=== PATIENT | female | born 1945 | race Caucasian/White ===

== ENCOUNTER 2018-12-01 13:31 | Outpatient (CLI) | payer MEDICARE | END 2018-12-01 13:32 | disposition critical access hospital (66) | LOC: EMS 13:31 | PROVIDERS: ATTEND Surgery | DX: R07.9 Chest pain, unspecified (principal); R06.02 Shortness of breath; R11.0 Nausea | CPT/HCPCS: A0425; A0427 ==

== ENCOUNTER 2018-12-01 13:40 | Emergency (ER) | payer MEDICARE, OTHER ==
[2018-12-01] MEDS ORDERED: LORazepam 2 MG/ML VIAL IVP STA (14:19)
[2018-12-01 14:33] LABS: BASOPHILS # (AUTO) 0.1 10^3/uL (0.0-0.1); BASOPHILS % (AUTO) 0.7 %; EOSINOPHILS # (AUTO) 0.1 10^3/uL (0.0-0.7); EOSINOPHILS % (AUTO) 1.6 %; HGB - HEMOGLOBIN 14.2 g/dL (12.0-16.0); LYMPHOCYTES # (AUTO) 1.8 10^3/uL (1.5-3.5); LYMPHOCYTES % (AUTO) 23.9 %; MEAN CORPUSCULAR HEMOGLOBIN 30.3 pg (27.0-31.0); MEAN CORPUSCULAR HGB CONC 33.5 g/dL (32.0-36.0); MEAN CORPUSCULAR VOLUME 90.6 fL (81.0-99.0); MEAN PLATELET VOLUME 11.4 fL (7.9-10.8); MONOCYTES # (AUTO) 0.6 10^3/uL (0.0-1.0); MONOCYTES % (AUTO) 7.6 %; NEUTROPHILS % (AUTO) 65.8 %; PLT - PLATELET COUNT 217 10^3/uL (130-450); RED BLOOD COUNT 4.68 10^6/uL (4.20-5.40); RED CELL DISTRIBUTION WIDTH 12.8 % (12.0-15.0); WHITE BLOOD COUNT 7.5 x10^3/uL (4.8-10.8)
[2018-12-01] MEDS ORDERED: FAMOTIDINE 20 MG TABLET PO STA (14:42)
[2018-12-01] MEDS ORDERED: LIDOCAINE VISCOUS 2% 15 ML UDC MM STA (14:42)
[2018-12-01] MEDS ORDERED: MAG HYDROX/AL HYDROX/SIMETH 30 ML UDC PO STA (14:42)
[2018-12-01] MEDS ORDERED: SUCRALFATE 1 GM/10 ML UDC PO STA (14:42)
--- NOTE | 2018-12-01 14:51 | ED Physician Documentation ---
PD HPI CHEST PAIN - Stated complaint Stated Complaint: CP - Chief complaint Chief Complaint: Cardiac - History obtained from History obtained from: Patient, Family, EMS - History of Present Illness Timing - onset: How many hours ago (4) Timing - onset during: Rest Timing - duration: Hours (4) Timing - details: Gradual onset Pain level max: 5 Pain level now: 5 Quality: Pain Location: Epigastric Radiation: Other (chest) Improved by: Nothing Worsened by: Other (nothing) Associated symptoms: Shortness of air. No: General Weakness, Cough Similar symptoms before: Diagnosis (GERD) Recently seen: Not recently seen - Additional information Additional information: history of anxiety and dementia. Lives with . gives most of the history. Pain started after breakfast. She had tea and orange juice. 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 : None HEENT: None Psych: Anxiety Musculoskeletal: None Derm: None - Past Surgical History 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 - Present Medications Home Medications: Ambulatory Orders Medication Instructions Recorded Confirmed Galantamine [Razadyne] 4 mg PO DAILY 11/19/13 12/01/18 HYDROcod/ACETAM 5/325 [Vicodin 1 - 2 ea PO Q6H PRN #15 tablet 11/19/13 12/01/18 5/325] Methocarbamol [Robaxin-750] 750 mg PO Q6HR PRN #20 tablet 11/19/13 12/01/18 Famotidine [Pepcid] 20 mg PO BID #60 tablet 12/01/18 - Allergies Allergies/Adverse Reactions: Allergies Allergy/AdvReac Type Severity Reaction Status Date / Time No Known Drug Allergies Allergy Verified 12/01/18 13:52 - Social History Does the pt smoke?: No Smoking Status: Never smoker Does the pt drink ETOH?: No Does the pt have substance abuse?: No - Immunizations Immunizations are current?: Yes - POLST Patient has POLST: No PD ED PE NORMAL - Vitals Vital signs reviewed: Yes - General General: Well developed/nourished, Other (Appears very anxious.) - HEENT HEENT: Moist mucous membranes - Neck Neck: Supple, no meningeal sign - Cardiac Cardiac: RRR - Respiratory Respiratory: No respiratory distress, Clear bilaterally - Abdomen Abdomen: Soft, Non tender, Non distended - Derm Derm: Warm and dry - Extremities Extremities: No edema - Neuro Neuro: Other (Alert, anxious) - Psych Psych: Normal mood, Normal affect Results - Vitals Vitals: Vital Signs - 24 hr 12/01/18 12/01/18 12/01/18 13:48 14:05 15:05 Temperature 37.0 C Heart Rate 72 87 Respiratory 30 H 14 Rate Blood Pressure 117/83 H 143/96 H Blood Pressure 128/66 [Left] O2 Saturation 100 98 12/01/18 15:50 Temperature Heart Rate 89 Respiratory 19 Rate Blood Pressure 109/75 Blood Pressure [Left] O2 Saturation 97 Oxygen O2 Source Room air Oxygen Flow Rate 2 - EKG (time done) 1522 Rate: Rate (enter#) (69) Rhythm: NSR [place]: Normal Intervals: Normal RI QRS: Normal Ischemia: Non specific changes - Labs Labs: Laboratory Tests 12/01/18 12/01/18 12/01/18 14:20 14:20 14:20 WBC 7.5 RBC 4.68 Hgb 14.2 Hct 42.4 MCV 90.6 MCH 30.3 MCHC 33.5 RDW 12.8 Plt Count 217 MPV 11.4 H Neut # (Auto) 5.0 Lymph # (Auto) 1.8 [place] # (Auto) 0.6 Eos # (Auto) 0.1 Baso # (Auto) 0.1 Absolute Nucleated RBC 0.00 Nucleated RBC % 0.0 Sodium 140 Potassium 3.1 L Chloride 105 Carbon Dioxide 22 Anion Gap 13.0 BUN 18 Creatinine 0.9 Estimated GFR (MDRD) 61 L Glucose 92 Calcium 9.4 Total Bilirubin 0.7 AST 20 ALT 14 Alkaline Phosphatase 63 Troponin I High Sens 5.0 Total Protein 6.6 L Albumin 4.0 Globulin 2.6 Albumin/Globulin Ratio 1.5 Lipase 29 - Rads (name of study) Chest x-ray Radiology: Prelim report reviewed, EMP read contemporaneously, See rad report (Hazy bibasilar pulmonary opacities could reflect mild pneumonia. ) PD MEDICAL DECISION MAKING - ED course Complexity details: reviewed results, re-evaluated patient, considered differential (No ST elevation IA, no aortic dissection, no PE, no tension pneumothorax, no aortic aneurysm), d/w patient, d/w family ED course: 73-year-old female with what appears to be GERD. Symptoms resolved with GI cocktail. Anxiety resolved with Ativan. Negative high-sensitivity troponin. No acute findings on EKG or chest x-ray. Exam is not consistent with pneumonia. History is also not consistent with this. We will continue supportive care and follow-up with her doctor. Will place on an H2 lisa for home. Patient and family counseled regarding signs and symptoms for which I believe and urgent re-evaluation would be necessary. Patient with good understanding of and agreement to plan and is comfortable going home at this time This document was made in part using voice recognition software. While efforts are made to proofread this document, sound alike and grammatical errors may occur. Departure - Departure Disposition: 01 Home, Self Care Clinical Impression: Anxiety GERD (gastroesophageal reflux disease) Qualifiers: Esophagitis presence: with esophagitis Qualified Code(s): K21.0 - Gastro- esophageal reflux disease with esophagitis Condition: Good Instructions: ED Chest Pain Atypical Unkn Cause, ED GERD, ED Panic Attack Follow-Up: your,doctor in 1 week [Other] Prescriptions: Famotidine [Pepcid] 20 mg PO BID #60 tablet Comments: Follow-up with your doctor for further care. Return if you worsen. Take the medications as prescribed. Discharge Date/Time: 12/01/18 15:50
[2018-12-01 14:54] LABS: ALBUMIN/GLOBULIN RATIO 1.5 (1.0-2.2); BILIRUBIN,TOTAL 0.7 mg/dL (0.2-1.0); CALCIUM 9.4 mg/dL (8.5-10.3); CREATININE 0.9 mg/dL (0.4-1.0); TOTAL PROTEIN 6.6 g/dL (6.7-8.2)
--- NOTE | 2018-12-01 15:07 | XRAY Report ---
Reason: chest pain Procedure Date: 12/01/2018 Accession Number: [id number] / [id number] Procedure: XR - Chest 1 View X-Ray CPT Code: 83279 FULL RESULT: EXAM: CHEST RADIOGRAPHY EXAM DATE: 12/01/2018 02:37 PM. CLINICAL HISTORY: Chest pain. COMPARISON: 1V CXR 05/16/2007 1:31 PM. TECHNIQUE: 1 view. FINDINGS: Lungs/Pleura: Hazy bibasilar pulmonary opacities could reflect mild pneumonia. No focal upper lung consolidation. No pleural effusion or pneumothorax. Mediastinum: Within exam limitations, the cardiomediastinal contour is normal. Other: None. IMPRESSION: 1. Hazy bibasilar pulmonary opacities could reflect mild pneumonia. RADIA
[2018-12-01 15:51] VITALS: BP 109/75
== END 2018-12-01 15:50 | disposition home or self-care (01) ==
LOC: EDUNIT# → ED 13:40
DX: K21.0 Gastro-esophageal reflux disease with esophagitis (principal); F41.9 Anxiety disorder, unspecified
CPT/HCPCS: 36415; 71045; 80053; 83690; 84484; 85025; 93005; 96374; 99284; A9270; J2060

== ENCOUNTER 2019-02-24 20:47 | Emergency (ER) | payer MEDICARE ==
--- NOTE | 2019-02-24 21:15 | ED Physician Documentation ---
PD HPI ABD PAIN - Stated complaint Stated Complaint: FEM - Chief complaint Chief Complaint: Abd Pain - History obtained from History obtained from: Family (About a week ago developed diarrhea which defervesced with the use of Imodium, but now has not had a bowel movement in 4 days. And appears uncomfortable. 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 - Present Medications Home Medications: Ambulatory Orders Medication Instructions Recorded Confirmed Galantamine [Razadyne] 4 mg PO DAILY 11/19/13 12/01/18 HYDROcod/ACETAM 5/325 [Vicodin 1 - 2 ea PO Q6H PRN #15 tablet 11/19/13 12/01/18 5/325] Methocarbamol [Robaxin-750] 750 mg PO Q6HR PRN #20 tablet 11/19/13 12/01/18 Famotidine [Pepcid] 20 mg PO BID #60 tablet 12/01/18 - Allergies Allergies/Adverse Reactions: Allergies Allergy/AdvReac Type Severity Reaction Status Date / Time No Known Drug Allergies Allergy Verified 02/24/19 20:53 - Social History Does the pt smoke?: No Smoking Status: Never smoker Does the pt drink ETOH?: No Does the pt have substance abuse?: No - Immunizations Immunizations are current?: Yes - POLST Patient has POLST: No PD ED PE NORMAL - Vitals Vital signs reviewed: Yes - General General: Other (She is alert, basically nonverbal but cooperative) - Abdomen Abdomen: Non tender, Other (Hyperactive bowel tones and some distention, nontender) - Rectal Rectal: Other (Large brown fecal impaction, and enema was placed during initial exam.) Results - Vitals Vitals: Vital Signs - 24 hr 02/24/19 20:53 Temperature 36.6 C Heart Rate 84 Respiratory 14 Rate Blood Pressure 143/95 H O2 Saturation 100 Oxygen O2 Source Room air PD MEDICAL DECISION MAKING - ED course ED course: This is a fairly demented 74-year-old woman who presents with a fecal impaction. She was given a couple of enemas here and had large BMs with resolution of the fecal impaction on repeat examination. She remained nontender to evaluation. She did get panicky I think because of the rectal pain and was given some Ativan for this. Departure - Departure Disposition: 01 Home, Self Care Clinical Impression: Fecal impaction Condition: Good Record reviewed to determine appropriate education?: Yes Instructions: ED Impaction Fecal Treated Comments: Call your doctor to arrange a follow-up appointment, make the next available appointment. In the interim, return anytime if worse or if new symptoms develop.
[2019-02-24] MEDS ORDERED: BISACODYL 5 MG TABLET PO STA (21:43)
[2019-02-24] MEDS ORDERED: LORazepam 2 MG/ML VIAL IM STA (21:43)
[2019-02-24] MEDS ORDERED: MAGNESIUM CITRATE 296 ML BOTTLE PO STA (22:18)
[2019-02-24 22:57] VITALS: BP 134/77
== END 2019-02-24 23:06 | disposition home or self-care (01) ==
LOC: ED 20:47
DX: K56.41 Fecal impaction (principal); F03.90 Unspecified dementia, unspecified severity, without behavioral disturbance, psychotic disturbance, mood disturbance, and anxiety; F41.0 Panic disorder [episodic paroxysmal anxiety]
CPT/HCPCS: 96372; 99281; 99283; A9270; J2060

== ENCOUNTER 2019-04-07 15:10 | Emergency (ER) | payer MEDICARE ==
--- NOTE | 2019-04-07 16:33 | ED Physician Documentation ---
PD HPI FEMALE - Stated complaint Stated Complaint: FEMALE - Chief complaint Chief Complaint: Abd Pain - History obtained from History obtained from: Patient, Family - History of Present Illness Timing - onset: Today (patient with dementia so not able to give symptoms well. Caregiver and spouse noted her to be agitated over baseline, and she seemed to have abd pain until had quick urination and complained of pain with urinating. Caregiver says the urine had strong odor and was cloudy looking. She has had some diarrhea/loose stools for 1-2 weeks, and wears Depends as is incontinent often.) Timing - details: Abrupt onset, Still present Associated symptoms: Dysuria. No: Fever, Abdominal pain, Genital sore/lesion Similar symptoms before: Diagnosis (UTIs) Recently seen: Not recently seen Review of Systems Constitutional: denies: Fever Nose: denies: Congestion Respiratory: denies: Cough GI: reports: Diarrhea. denies: Vomiting : reports: Dysuria (today) Neurologic: reports: Altered mental status (agitated over baseline). 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 - Present Medications Home Medications: Ambulatory Orders Medication Instructions Recorded Confirmed Galantamine [Razadyne] 4 mg PO DAILY 11/19/13 12/01/18 HYDROcod/ACETAM 5/325 [Vicodin 1 - 2 ea PO Q6H PRN #15 tablet 11/19/13 12/01/18 5/325] Methocarbamol [Robaxin-750] 750 mg PO Q6HR PRN #20 tablet 11/19/13 12/01/18 Famotidine [Pepcid] 20 mg PO BID #60 tablet 12/01/18 Cephalexin Suspension [Keflex] 750 mg PO BID #150 ml 04/07/19 Phenazopyridine HCl [Pyridium] 100 mg PO TID PRN #15 tablet 04/07/19 - Allergies Allergies/Adverse Reactions: Allergies Allergy/AdvReac Type Severity Reaction Status Date / Time No Known Drug Allergies Allergy Verified 04/07/19 15:21 - Social History Does the pt smoke?: No Smoking Status: Never smoker Does the pt drink ETOH?: No Does the pt have substance abuse?: No - Immunizations Immunizations are current?: Yes - POLST Patient has POLST: No PD ED PE NORMAL - Vitals Vital signs reviewed: Yes - General General: No acute distress, Well developed/nourished. No: Alert and oriented X 3 (alert but not really verbal and does not answer questions, c/w dementia. ) - Neck Neck: Supple, no meningeal sign, No adenopathy - Cardiac Cardiac: RRR, No murmur - Respiratory Respiratory: Clear bilaterally - Abdomen Abdomen: Normal bowel sounds, Soft, Non tender, Non distended - Derm Derm: Normal color, Warm and dry - Neuro Neuro: No motor deficit, No sensory deficit. No: Alert and oriented X 3 Eye Opening: Spontaneous Motor: Localizes to Pain Verbal: Confused GCS Score: 13 Results - Vitals Vitals: Vital Signs - 24 hr 04/07/19 04/07/19 04/07/19 15:22 16:33 19:08 Temperature 36.5 C 37.3 C Heart Rate 84 76 Respiratory 20 20 Rate Blood Pressure 134/69 H O2 Saturation 97 Oxygen O2 Source Room air PD MEDICAL DECISION MAKING - ED course Complexity details: considered differential (unable to give urine sample in commode/hat. Agitated with exam and noncooperative, so did not want to push her for mini-cath. Talked with spouse about empirically treating for UTI without UA. ), d/w patient Departure - Departure Disposition: Home, Self Care Clinical Impression: Dysuria, Agitation Condition: Stable Record reviewed to determine appropriate education?: Yes Instructions: ED Dysuria Uncertain Cause Follow-Up: TERESA LEVIN MD [Primary Care Provider] - Prescriptions: Cephalexin Suspension [Keflex] 750 mg PO BID #150 ml Phenazopyridine HCl [Pyridium] 100 mg PO TID PRN #15 tablet PRN Reason: Abdominal Pain Comments: Given her symptoms with the agitation, will presume she has a urinary tract infection. She does not seem to ill (no fever and soft abdomen and no vomiting (. Phenazopyridine 2-3 times a day to help with the urinary symptoms. Cephalexin antibiotic 2 times a day for infection. Recheck if not improving well over the next couple of days. Tylenol if needed for discomfort. Discharge Date/Time: 04/07/19 19:13
[2019-04-07 16:35] VITALS: BP 134/69
[2019-04-07] MEDS ORDERED: PHENAZOPYRIDINE 100 MG TABLET PO STA (16:53)
[2019-04-07] MEDS ORDERED: HYDROcodone/ACETAM 7.5 MG/325 MG 15 ML UDC PO STA (16:53)
[2019-04-07] MEDS ORDERED: cephALEXin 250 MG CAPSULE PO STA (18:38)
== END 2019-04-07 19:13 | disposition home or self-care (01) ==
LOC: ED 15:10
DX: R30.0 Dysuria (principal); R45.1 Restlessness and agitation; F03.90 Unspecified dementia, unspecified severity, without behavioral disturbance, psychotic disturbance, mood disturbance, and anxiety
CPT/HCPCS: 51798; 99283; 99284; A9270

== ENCOUNTER 2020-02-22 12:31 | Outpatient (CLI) | payer MEDICARE | END 2020-02-22 12:32 | disposition critical access hospital (66) | LOC: EMS 12:31 | PROVIDERS: ATTEND Surgery | DX: S01.81XA Laceration without foreign body of other part of head, initial encounter (principal); W08.XXXA Fall from other furniture, initial encounter; Y92.009 Unspecified place in unspecified non-institutional (private) residence as the place of occurrence of the external cause | CPT/HCPCS: A0425; A0429 ==

== ENCOUNTER 2020-02-22 12:45 | Emergency (ER) | payer MEDICARE ==
--- NOTE | 2020-02-22 13:23 | ED Physician Documentation ---
History of Present Illness - Stated complaint Stated Complaint: GLF/HIT HEAD - Chief complaint Chief Complaint: Trauma Hd/Nk - History obtained from History obtained from: Family, EMS - History of Present Illness Timing: Today Pain level max: 0 Pain level now: 0 - Additonal information Additional information: 75 year old female with a fall off the stool today while sitting at the kitchen counter. History is from as she is nonverbal. No LOC. Struck her head on the tile. no vomiting. No seizure activity. No changes to her medications. Nothing makes it better or worse. 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 - Present Medications Home Medications: Ambulatory Orders Medication Instructions Recorded Confirmed Galantamine [Razadyne] 4 mg PO DAILY 11/19/13 12/01/18 HYDROcod/ACETAM 5/325 [Vicodin 1 - 2 ea PO Q6H PRN #15 tablet 11/19/13 12/01/18 5/325] Methocarbamol [Robaxin-750] 750 mg PO Q6HR PRN #20 tablet 11/19/13 12/01/18 Famotidine [Pepcid] 20 mg PO BID #60 tablet 12/01/18 Cephalexin Suspension [Keflex] 750 mg PO BID #150 ml 04/07/19 Phenazopyridine HCl [Pyridium] 100 mg PO TID PRN #15 tablet 04/07/19 - Allergies Allergies/Adverse Reactions: Allergies Allergy/AdvReac Type Severity Reaction Status Date / Time No Known Drug Allergies Allergy Verified 02/22/20 12:54 - Social History Does the pt smoke?: No Smoking Status: Never smoker Does the pt drink ETOH?: No Does the pt have substance abuse?: No - Immunizations Immunizations are current?: Yes - POLST Patient has POLST: No PD ED PE NORMAL - Vitals Vital signs reviewed: Yes - General General: No acute distress, Other (alert, smiling) - HEENT HEENT: PERRL, Other (abrasion L congregation. no hematoma) - Neck Neck: Supple, no meningeal sign, No bony TTP, Other (no step off or deformity.) - Cardiac Cardiac: RRR - Respiratory Respiratory: No respiratory distress, Clear bilaterally - Abdomen Abdomen: Soft, Non tender, Non distended - Back Back: No spinal TTP, Other (no step off or deformity.) - Derm Derm: Warm and dry - Extremities Extremities: No deformity, No tenderness to palpate, Normal ROM s pain - Neuro Neuro: Other (alert) Results - Vitals Vitals: Vital Signs - 24 hr 02/22/20 02/22/20 12:50 14:55 Temperature 36.5 C Heart Rate 66 56 L Respiratory 18 18 Rate Blood Pressure 111/49 L 139/70 H O2 Saturation 100 100 Oxygen O2 Source Room air - Labs Labs: Laboratory Tests 02/22/20 02/22/20 13:32 13:32 WBC 9.6 RBC 4.46 Hgb 12.8 Hct 39.6 MCV 88.8 MCH 28.7 MCHC 32.3 RDW 13.0 Plt Count 254 MPV 10.6 Neut # (Auto) 8.0 H Lymph # (Auto) 0.9 L [place] # (Auto) 0.6 Eos # (Auto) 0.1 Baso # (Auto) 0.1 Absolute Nucleated RBC 0.00 Nucleated RBC % 0.0 Sodium 138 Potassium 4.1 Chloride 101 Carbon Dioxide 26 Anion Gap 11.0 BUN 17 Creatinine 0.7 Estimated GFR (MDRD) 81 L Glucose 96 Calcium 9.2 Total Bilirubin 0.5 AST 14 ALT 14 Alkaline Phosphatase 76 Total Protein 6.1 L Albumin 3.7 Globulin 2.4 Albumin/Globulin Ratio 1.5 Lipase 28 - Rads (name of study) head CT Radiology: Prelim report reviewed, EMP read contemporaneously, See rad report (no acute abnormality.) cervical spine CT Radiology: Prelim report reviewed, EMP read contemporaneously, See rad report PD MEDICAL DECISION MAKING - ED course Complexity details: reviewed results, re-evaluated patient, considered differential, d/w patient, d/w family ED course: 75-year-old female with a fall today. No acute findings on CT scans of the head and neck. There is a nonspecific opacity in the right lung apex, they will follow-up with her doctor further regarding this. They can have a CT of the chest with IV contrast as an outpatient. No indication for emergent CT at this time. Patient appears to be at her normal mental baseline. Patient and family counseled regarding signs and symptoms for which I believe and urgent re- evaluation would be necessary. Patient with good understanding of and agreement to plan and is comfortable going home at this time This document was made in part using voice recognition software. While efforts are made to proofread this document, sound alike and grammatical errors may occur. Urine sample is unable to be obtained and the patient became agitated when a straight cath was attempted. Therefore we will hold off on obtaining urine at this time. No CT evidence of acute traumatic cervical spine injury. Nonspecific opacity in the right lung apex. This could represent atelectasis, consolidation, or potentially a lung mass. Nonemergent outpatient CT of the chest with IV contrast is recommended for further evaluation. Departure - Departure Disposition: 01 Home, Self Care Clinical Impression: Fall Qualifiers: Encounter type: initial encounter Qualified Code(s): W19.XXXA - Unspecified fall, initial encounter Head injury Qualifiers: Encounter type: initial encounter Qualified Code(s): S09.90XA - Unspecified injury of head, initial encounter Condition: Good Instructions: ED Head Injury Closed Follow-Up: TERESA LEVIN MD [Primary Care Provider] - As Needed Comments: Her laboratory work and CT scans do not show any acute abnormalities today. Return if she worsens. Follow-up with her doctor for further care. CT chest: No CT evidence of acute traumatic cervical spine injury. Nonspecific opacity in the right lung apex. This could represent atelectasis, consolidation, or potentially a lung mass. Nonemergent outpatient CT of the chest with IV contrast is recommended for further evaluation. Discharge Date/Time: 02/22/20 15:51
[2020-02-22 13:38] LABS: BASOPHILS # (AUTO) 0.1 10^3/uL (0.0-0.1); BASOPHILS % (AUTO) 0.5 %; EOSINOPHILS # (AUTO) 0.1 10^3/uL (0.0-0.7); EOSINOPHILS % (AUTO) 0.6 %; HGB - HEMOGLOBIN 12.8 g/dL (12.0-16.0); LYMPHOCYTES # (AUTO) 0.9 10^3/uL (1.5-3.5); LYMPHOCYTES % (AUTO) 9.3 %; MEAN CORPUSCULAR HEMOGLOBIN 28.7 pg (27.0-31.0); MEAN CORPUSCULAR HGB CONC 32.3 g/dL (32.0-36.0); MEAN CORPUSCULAR VOLUME 88.8 fL (81.0-99.0); MEAN PLATELET VOLUME 10.6 fL (7.9-10.8); MONOCYTES # (AUTO) 0.6 10^3/uL (0.0-1.0); MONOCYTES % (AUTO) 5.9 %; NEUTROPHILS % (AUTO) 83.2 %; PLT - PLATELET COUNT 254 10^3/uL (130-450); RED BLOOD COUNT 4.46 10^6/uL (4.20-5.40); WHITE BLOOD COUNT 9.6 x10^3/uL (4.8-10.8)
[2020-02-22 14:00] LABS: ALBUMIN 3.7 g/dL (3.2-5.5); ALBUMIN/GLOBULIN RATIO 1.5 (1.0-2.2); BILIRUBIN,TOTAL 0.5 mg/dL (0.2-1.0); CALCIUM 9.2 mg/dL (8.5-10.3); CREATININE 0.7 mg/dL (0.4-1.0); TOTAL PROTEIN 6.1 g/dL (6.7-8.2)
--- NOTE | 2020-02-22 14:06 | CT Report ---
PROCEDURE: HEAD WO INDICATIONS: Trauma, fall, head injury TECHNIQUE: Noncontrast 4.5 mm thick angled axial sections acquired from the foramen magnum to the vertex. For r adiation dose reduction, the following was used: automated exposure control, adjustment of mA and/or kV according to patient size. COMPARISON: None. FINDINGS: Image quality: Excellent. CSF spaces: Basal cisterns are patent. No extra-axial fluid collections. Ventricles are normal in size and shape. Brain: Advanced global cerebral volume loss with moderate to severe chronic vascular ischemic changes . No midline shift. No intracranial masses or hemorrhage. Trevizo-white matter interface is normal. Skull and face: Calvarium and visualized facial bones are intact, without suspicious lesions. Sinuses: Visualized sinuses and mastoids are clear. IMPRESSION: No acute intracranial finding. Advanced global cerebral volume loss and chronic microvas cular ischemic changes. Reviewed by: Jamarcus Barksdale MD on 02/22/2020 2:05 PM PST Approved by: Jamarcus Barksdale MD on 02/22/2020 2:05 PM PST Station ID: [id number]
--- NOTE | 2020-02-22 14:09 | CT Report ---
PROCEDURE: CERVICAL SPINE WO INDICATIONS: fall, neck pain TECHNIQUE: Noncontrast 3 mm thick sections acquired from the skull base to the T4 level. Sagittal and coronal r eformats were then constructed. For radiation dose reduction, the following was used: automated exp osure control, adjustment of mA and/or kV according to patient size. COMPARISON: None. FINDINGS: Image quality: Excellent. Bones: No fractures or dislocations. Multilevel degenerative changes, overall moderate, characterize d by disc height loss, degenerative endplate changes with posterior disc-osteophyte complexes, as wel l as facet and uncovertebral hypertrophy. Visualized superior ribs are intact. Soft tissues: Prevertebral soft tissues are normal in thickness. No paravertebral hematomas. And no nspecific airspace opacity in the right greater than left lung apices, partially visualized. IMPRESSION: No CT evidence of acute traumatic cervical spine injury. Nonspecific opacity in the right lung apex. This could represent atelectasis, consolidation, or poten tially a lung mass. Nonemergent outpatient CT of the chest with IV contrast is recommended for furthe r evaluation. Reviewed by: Jamarcsu Barksdale MD on 02/22/2020 2:08 PM PST Approved by: Jamarcus Barksdale MD on 02/22/2020 2:08 PM PST Station ID: [id number]
[2020-02-22 15:55] VITALS: BP 113/68
== END 2020-02-22 15:51 | disposition home or self-care (01) ==
LOC: EDUNIT# → ED 12:45
DX: S09.90XA Unspecified injury of head, initial encounter (principal); S00.81XA Abrasion of other part of head, initial encounter; W08.XXXA Fall from other furniture, initial encounter; Y92.000 Kitchen of unspecified non-institutional (private) residence as the place of occurrence of the external cause; M47.812 Spondylosis without myelopathy or radiculopathy, cervical region; R91.8 Other nonspecific abnormal finding of lung field; F03.90 Unspecified dementia, unspecified severity, without behavioral disturbance, psychotic disturbance, mood disturbance, and anxiety
CPT/HCPCS: 36415; 51701; 70450; 72125; 80053; 83690; 85025; 99284

== ENCOUNTER 2020-09-12 11:50 | Outpatient (CLI) | payer MEDICARE | END 2020-09-12 11:51 | disposition critical access hospital (66) | LOC: EMS 11:50 | DX: S00.81XA Abrasion of other part of head, initial encounter (principal); S50.819A Abrasion of unspecified forearm, initial encounter; W17.89XA Other fall from one level to another, initial encounter; Y93.89 Activity, other specified; Y92.008 Other place in unspecified non-institutional (private) residence as the place of occurrence of the external cause | CPT/HCPCS: A0425; A0429 ==

== ENCOUNTER 2020-09-12 11:58 | Emergency (ER) | payer MEDICARE ==
--- NOTE | 2020-09-12 12:12 | ED Physician Documentation ---
History of Present Illness - Stated complaint Stated Complaint: GLF - Additonal information Additional information: 75-year-old lady who carries a history of dementia presents to the emergency department and see spine precautions as well as a backboard after ground-level fall this morning. She was exiting the house with her and she fell forward from her deck onto a gravel rock way. She fell from a height of about 1-1/2 to 2 feet. There was no loss of consciousness. The patient has fairly advanced dementia and is typically nonverbal. Most of the history obtained from the as well as EMS. She is not anticoagulated. Typically able to ambulate with a cane or walker. Review of Systems Unable to obtain: Dementia, Other (History obtained from EMS and ) Constitutional: reports: Reviewed and negative Cardiac: reports: Reviewed and negative Respiratory: reports: Reviewed and negative GI: reports: Reviewed and negative : reports: Reviewed and negative Skin: reports: Laceration (s) (Forehead) Musculoskeletal: reports: Reviewed and negative Neurologic: reports: Head injury PD PAST MEDICAL HISTORY - Past Medical History Cardiovascular: Atrial fibrillation Respiratory: Shortness of breath Neuro: Dementia Endocrine/Autoimmune: None GI: None SPOT BILLING CLERK: None : None HEENT: None Psych: Anxiety Musculoskeletal: None Derm: None - Past Surgical History Past Surgical History: Yes /SPOT BILLING CLERK: Hysterectomy - Present Medications Home Medications: Ambulatory Orders Medication Instructions Recorded Confirmed Galantamine [Razadyne] 4 mg PO DAILY 11/19/13 12/01/18 HYDROcod/ACETAM 5/325 [Vicodin 1 - 2 ea PO Q6H PRN #15 tablet 11/19/13 12/01/18 5/325] methocarbamoL [Robaxin-750] 750 mg PO Q6HR PRN #20 tablet 11/19/13 12/01/18 Famotidine [Pepcid] 20 mg PO BID #60 tablet 12/01/18 Cephalexin Suspension [Keflex] 750 mg PO BID #150 ml 04/07/19 Phenazopyridine HCl [Pyridium] 100 mg PO TID PRN #15 tablet 04/07/19 - Allergies Allergies/Adverse Reactions: Allergies Allergy/AdvReac Type Severity Reaction Status Date / Time No Known Drug Allergies Allergy Verified 09/12/20 12:12 - Social History Does the pt smoke?: No Smoking Status: Never smoker Does the pt drink ETOH?: No Does the pt have substance abuse?: No - Immunizations Immunizations are current?: Yes - POLST Patient has POLST: No PD ED PE EXPANDED - General General: Well developed/nourished, In Pain - HEENT HEENT: PERRL, Other (Irregular jagged laceration to the right upper forehead). No: Atraumatic - Neck Neck: Supple w/out meningeal sx, Other (Arrives in a c-collar and C-spine precautions. No midline cervical tenderness appreciated. Pending CT of the neck). No: Bony TTP (No step-off or deformity) - Cardiac Cardiac: Regular Rate, Radial strong equal, Cap refill < 2 sec - Respiratory Respiratory: Clear to ausultation odalis. No: Distress, Labored - Abdomen Abdomen: Normal Bowel sounds. No: Tender to palpation - Back Back: No: Vertebral tenderness (No tenderness elicited of the thoracic or lumbar spine on palpation no step-off no deformity.), Soft tissue tenderness - Extremities Extremities: Normal, Other (No leg shortening. Bilateral hips passive range of motion without any pain elicited.). No: Deformity, Tenderness - Neuro Neuro: Confused (Baseline dementia), CNII-XII intact - GCS Eye Opening: Spontaneous Motor: Localizes to Pain Verbal: Inappropriate (At baseline for dementia) Total: 12 Results - Vitals Vitals: Vital Signs - 24 hr 09/12/20 09/12/20 12:12 13:42 Temperature 36.7 C Heart Rate 60 56 L Respiratory 16 16 Rate Blood Pressure 97/63 121/73 O2 Saturation 95 98 Oxygen O2 Source Room air - Labs Labs: Laboratory Tests 09/12/20 09/12/20 13:01 13:01 WBC 9.6 RBC 4.37 Hgb 12.9 Hct 38.3 MCV 87.6 MCH 29.5 MCHC 33.7 RDW 12.9 Plt Count 253 MPV 10.9 H Neut # (Auto) 7.4 H Lymph # (Auto) 1.5 [place] # (Auto) 0.6 Eos # (Auto) 0.1 Baso # (Auto) 0.0 Absolute Nucleated RBC 0.00 Nucleated RBC % 0.0 Sodium 138 Potassium 3.7 Chloride 106 Carbon Dioxide 22 Anion Gap 10.0 BUN 18 Creatinine 0.8 Estimated GFR (MDRD) 70 L Glucose 115 H Calcium 9.2 - Rads (name of study) maxilofacial CT Radiology: Final report received (Bilateral comminuted and mildly displaced nasal bone fractures. Right maxillary sinus mucous retention cyst versus polypoid mass. Mildly increased in size from January 2020. Consider nonemergent MRI) CT head Radiology: Final report received (No acute intracranial findings) CXR Radiology: Final report received (No acute cardiopulmonary process) CT neck Radiology: Final report received (No CT evidence of acute traumatic cervical sp ine injury.) Procedures - Laceration (location) forehead Length in cm: 4 Wound type: Stellate, Into subcut fat, Clean Neurovascular status: Sensory intact Anesthesia: Lidocaine 1% Wound preparation: Chlorhexadine, Irrigated copiously NS Skin layer closure: Interrupted, Size #-0 - enter number (6), Sutures - enter # (6) Other: Patient tolerated well, No complications, Tetanus booster given PD MEDICAL DECISION MAKING - ED course Complexity details: reviewed results, re-evaluated patient, considered differential, d/w family ED course: 75-year-old female who has an underlying history of dementia and typically uses a wheelchair or walks with a cane presents the emergency department after a ground-level fall in which she fell face forward off her deck onto a rock ground cover. She arrived via EMS in C-spine and backboard precautions. She had a large laceration on her right forehead as well as swelling and ecchymosis of the nose and under both her eyes. There was no lapse in consciousness. CT imaging of the head showed no acute intracranial injury. Maxillofacial CT did reveal a comminuted nasal fractures. Cervical spine imaging and chest x-ray was negative. She had no thoracic or lumbar tenderness. Laceration was closed at the bedside. Routine wound care was discussed with the . She will be referred to OM for follow-up of the nasal fracture. I advised her that she may benefit from saline nasal sprays though this may be difficult given her advancing dementia. Emergent return precautions were discussed for fevers, significant change in baseline mental status or purulent drainage from her wounds or nose. Departure - Departure Disposition: 01 Home, Self Care Clinical Impression: Fall from ground level Nasal bone fracture Qualifiers: Encounter type: initial encounter Fracture type: closed Qualified Code(s): S02.2XXA - Fracture of nasal bones, initial encounter for closed fracture Laceration of forehead without complication Qualifiers: Encounter type: initial encounter Qualified Code(s): S01.81XA - Laceration without foreign body of other part of head, initial encounter Dementia Qualifiers: Dementia type: unspecified type Dementia behavioral disturbance: without behavioral disturbance Qualified Code(s): F03.90 - Unspecified dementia without behavioral disturbance Condition: Stable Record reviewed to determine appropriate education?: Yes Instructions: ED Fx Nasal Conf W X Ray, ED Laceration Scalp Stitch Or Stap Follow-Up: Tani Saavedra DDS [Provider Admit Priv/Credential] - JULY ARAUJO ARNP [Primary Care Provider] - Comments: Medina was seen today after a fall off the deck at home. CT imaging of her brain shows no bruising or bleeding. The CT of her neck also showed no fractures. Her chest x-ray was normal for age. Unfortunately she has sustained fractures of her nose. You may find that over the next 2 to 3 days that she has significant amount of swelling and bruising of her nose and under her eyes. This is normal. I do recommend that you attempt to do saline nasal sprays 2-3 times a day to help keep her septum clear though this may be difficult. Please call Dr. Saavedra the oral surgeon to arrange follow-up of this fracture. If at any point she has fevers, is significantly more lethargic, has uncontrolled vomiting or milky drainage from her nose please return immediately to the ER for a second look. It is okay to take the regular pain medication she typically takes at home Your sutures should be removed in 7 to 10 days. In 24 hours you may remove the dressing wash gently with warm soap and water, apply any antibiotic ointment and a simple bandage. Your tetanus is up-to-date. Please attempt to keep your wound clean and dry. Do not submerge it in dirty dishwater or bath water. Return to the emergency department if you have any concerns of infection such as redness, fevers milky drainage increased pain.
[2020-09-12] MEDS ORDERED: BUFFERED LIDOCAINE 10 ML SYRINGE SUBQ STA (12:17)
--- NOTE | 2020-09-12 12:47 | CT Report ---
PROCEDURE: HEAD WO INDICATIONS: Ground-level fall, trauma, forehead contusion TECHNIQUE: Noncontrast 4.5 mm thick angled axial sections acquired from the foramen magnum to the vertex. For r adiation dose reduction, the following was used: automated exposure control, adjustment of mA and/or kV according to patient size. COMPARISON: 02/22/[address] FINDINGS: Image quality: Excellent. CSF spaces: Basal cisterns are patent. No extra-axial fluid collections. Ventricles are normal in size and shape. Brain: No midline shift. No intracranial masses or hemorrhage. Trevizo-white matter interface is norm al. Skull and face: Calvarium and visualized facial bones are intact, without suspicious lesions. Sinuses: Visualized sinuses and mastoids are clear. IMPRESSION: No acute intracranial abnormality. Reviewed by: Jamarcus Barksdale MD on 09/12/2020 12:46 PM PDT Approved by: Jamarcus Barksdale MD on 09/12/2020 12:46 PM PDT Station ID: [id number]
--- NOTE | 2020-09-12 12:49 | XRAY Report ---
PROCEDURE: Chest 1 View X-Ray INDICATIONS: Chest pain status post ground level fall TECHNIQUE: One view of the chest was acquired. COMPARISON: 12/01/2018 FINDINGS: Surgical changes and devices: None. Lungs and pleura: No pleural effusions or pneumothorax. Lungs are clear. Mediastinum: Mediastinal contours appear normal. Heart size is normal. Bones and chest wall: No suspicious bony lesions. Overlying soft tissues appear unremarkable. IMPRESSION: No acute cardiopulmonary process demonstrated radiographically. Reviewed by: Jamarcus Barksdale MD on 09/12/2020 12:48 PM PDT Approved by: Jamarcus Barksdale MD on 09/12/2020 12:48 PM PDT Station ID: [id number]
--- NOTE | 2020-09-12 12:53 | CT Report ---
PROCEDURE: MAXILLOFACIAL WO INDICATIONS: Facial trauma, ground-level fall TECHNIQUE: Noncontrast 1.5 mm thick axial images acquired from the mandible through the frontal sinuses, with co jerald and sagittal reformatting. For radiation dose reduction, the following was used: automated ex posure control, adjustment of mA and/or kV according to patient size. COMPARISON: 02/22/[address] FINDINGS: Image quality: Excellent. Bones and teeth: Bilateral comminuted and mildly displaced nasal bone fractures. The remaining facial osseous structures are intact. Sinuses: Right maxillary sinus mucous retention cyst versus polypoid mass, increased in size from com parison studies. Otherwise clear paranasal sinuses and mastoid air cells. Soft tissues: No edema, masses, or fluid collections. No enlarged lymph nodes. No soft tissue lace rations or debris. Vascular: Visualized vascular structures appear normal in the absence of contrast. Bony vascular fo ramina and canals are intact. IMPRESSION: Bilateral comminuted and mildly displaced nasal bone fractures. Right maxillary sinus mucous retention cyst versus polypoid mass, mildly increased in size from 2019 exam. Consider nonemergent MRI of the sinuses with IV contrast for further assessment. Reviewed by: Jamarcus Barksdale MD on 09/12/2020 12:52 PM PDT Approved by: Jamarcus Barksdale MD on 09/12/2020 12:52 PM PDT Station ID: [id number]
--- NOTE | 2020-09-12 13:00 | CT Report ---
PROCEDURE: CERVICAL SPINE WO INDICATIONS: GLF; neck pain TECHNIQUE: Noncontrast 3 mm thick sections acquired from the skull base to the T4 level. Sagittal and coronal r eformats were then constructed. For radiation dose reduction, the following was used: automated exp osure control, adjustment of mA and/or kV according to patient size. COMPARISON: None. FINDINGS: Image quality: Excellent. Bones: Straightening and reversal of usual cervical lordosis due to degenerative changes, similar to the comparison study. There is no listhesis. No findings of subluxation or dislocation. Vertebral bod y heights maintained. No evidence of fracture. Soft tissues: Prevertebral soft tissues are normal in thickness. No paravertebral hematomas. No ap ical pneumothoraces. IMPRESSION: No CT evidence of acute traumatic cervical spine injury. Reviewed by: Jamarcus Barksdale MD on 09/12/2020 12:59 PM PDT Approved by: Jamarcus Barksdale MD on 09/12/2020 12:59 PM PDT Station ID: [id number]
[2020-09-12 13:06] LABS: BASOPHILS % (AUTO) 0.3 %; EOSINOPHILS # (AUTO) 0.1 10^3/uL (0.0-0.7); EOSINOPHILS % (AUTO) 0.7 %; HCT - HEMATOCRIT 38.3 % (37.0-47.0); HGB - HEMOGLOBIN 12.9 g/dL (12.0-16.0); LYMPHOCYTES # (AUTO) 1.5 10^3/uL (1.5-3.5); LYMPHOCYTES % (AUTO) 15.9 %; MEAN CORPUSCULAR HEMOGLOBIN 29.5 pg (27.0-31.0); MEAN CORPUSCULAR HGB CONC 33.7 g/dL (32.0-36.0); MEAN CORPUSCULAR VOLUME 87.6 fL (81.0-99.0); MEAN PLATELET VOLUME 10.9 fL (7.9-10.8); MONOCYTES # (AUTO) 0.6 10^3/uL (0.0-1.0); MONOCYTES % (AUTO) 6.1 %; NEUTROPHILS # (AUTO) 7.4 10^3/uL (1.5-6.6); NEUTROPHILS % (AUTO) 76.6 %; PLT - PLATELET COUNT 253 10^3/uL (130-450); RED BLOOD COUNT 4.37 10^6/uL (4.20-5.40); RED CELL DISTRIBUTION WIDTH 12.9 % (12.0-15.0); WHITE BLOOD COUNT 9.6 x10^3/uL (4.8-10.8)
[2020-09-12 13:16] LABS: CALCIUM 9.2 mg/dL (8.5-10.3); CREATININE 0.8 mg/dL (0.4-1.0); POTASSIUM 3.7 mmol/L (3.5-5.0)
[2020-09-12 13:43] VITALS: BP 121/73
[2020-09-12] MEDS ORDERED: TETANUS/DIPHTHERIA/PERTUSSIS 0.5 ML SYRINGE IM ONE (13:58)
== END 2020-09-12 14:04 | disposition home or self-care (01) ==
LOC: EDUNIT# → ED 11:58
DX: S02.2XXA Fracture of nasal bones, initial encounter for closed fracture (principal); S01.81XA Laceration without foreign body of other part of head, initial encounter; W17.89XA Other fall from one level to another, initial encounter; Y93.01 Activity, walking, marching and hiking; Y92.008 Other place in unspecified non-institutional (private) residence as the place of occurrence of the external cause; Z23 Encounter for immunization; F03.90 Unspecified dementia, unspecified severity, without behavioral disturbance, psychotic disturbance, mood disturbance, and anxiety; M47.812 Spondylosis without myelopathy or radiculopathy, cervical region
CPT/HCPCS: 12013; 36415; 80048; 85025; 99282; 99284

== ENCOUNTER 2020-10-25 11:02 | Outpatient (CLI) | payer MEDICARE | END 2020-10-25 11:03 | disposition critical access hospital (66) | LOC: EMS 11:02 | DX: R40.4 Transient alteration of awareness (principal) | CPT/HCPCS: A0425; A0427 ==

== ENCOUNTER 2020-10-25 11:06 | Emergency (ER) | payer MEDICARE ==
[2020-10-25] MEDS ORDERED: SODIUM CHLORIDE 0.9% 1,000 ML IV STA ×2 (11:20)
--- NOTE | 2020-10-25 11:32 | ED Physician Documentation ---
History of Present Illness - Stated complaint Stated Complaint: AMS - Chief complaint Chief Complaint: Neuro - History obtained from History obtained from: Patient, Family, EMS - History of Present Illness Timing: Today Pain level max: 0 Pain level now: 0 - Additonal information Additional information: Patient is a 75-year-old female with severe dementia brought into the emergency department for altered mental status today. This lasted about 20 minutes. It occurred during feeding. She allegedly stared off into space. Nothing makes it better or worse. At her baseline she is nonverbal. Lives at home with her and a caregiver. She has a Damon catheter in place since being admitted to [facility] a few weeks ago with a UTI. No fevers. No vomiting. Review of Systems Unable to obtain: Dementia Constitutional: denies: Fever GI: denies: Vomiting PD PAST MEDICAL HISTORY - Past Medical History Cardiovascular: Atrial fibrillation Respiratory: Shortness of breath Neuro: Dementia Endocrine/Autoimmune: None GI: None AIR QUALITY TECHNICIAN: None : None HEENT: None Psych: Anxiety Musculoskeletal: None Derm: None - Past Surgical History Past Surgical History: Yes /AIR QUALITY TECHNICIAN: Hysterectomy - Present Medications Home Medications: Ambulatory Orders Medication Instructions Recorded Confirmed Galantamine [Razadyne] 4 mg PO DAILY 11/19/13 12/01/18 HYDROcod/ACETAM 5/325 [Vicodin 1 - 2 ea PO Q6H PRN #15 tablet 11/19/13 12/01/18 5/325] methocarbamoL [Robaxin-750] 750 mg PO Q6HR PRN #20 tablet 11/19/13 12/01/18 Famotidine [Pepcid] 20 mg PO BID #60 tablet 12/01/18 Cephalexin Suspension [Keflex] 750 mg PO BID #150 ml 04/07/19 Phenazopyridine HCl [Pyridium] 100 mg PO TID PRN #15 tablet 04/07/19 Cefpodoxime Proxetil [Vantin] 100 mg PO Q12H #14 tablet 10/25/20 Sertraline HCl [Zoloft] 20 mg PO DAILY 10/25/20 10/25/20 - Allergies Allergies/Adverse Reactions: Allergies Allergy/AdvReac Type Severity Reaction Status Date / Time No Known Drug Allergies Allergy Verified 10/25/20 11:21 - Social History Does the pt smoke?: No Smoking Status: Never smoker Does the pt drink ETOH?: No Does the pt have substance abuse?: No - Immunizations Immunizations are current?: Yes - POLST Patient has POLST: No PD ED PE NORMAL - Vitals Vital signs reviewed: Yes - General General: No acute distress, Well developed/nourished, Other (alert, nonverbal) - HEENT HEENT: Atraumatic, PERRL, Other (dry lips) - Neck Neck: Supple, no meningeal sign - Cardiac Cardiac: RRR - Respiratory Respiratory: No respiratory distress, Clear bilaterally - Abdomen Abdomen: Soft, Non tender, Non distended - Derm Derm: Warm and dry - Extremities Extremities: No edema - Neuro Neuro: Other (alert) Results - Vitals Vitals: Vital Signs - 24 hr 10/25/20 10/25/20 10/25/20 11:07 11:23 11:30 Temperature 36.7 C Heart Rate 68 56 L 61 Respiratory 17 14 14 Rate Blood Pressure 89/71 L 95/61 92/67 O2 Saturation 96 94 98 10/25/20 10/25/20 10/25/20 11:45 12:00 12:30 Temperature Heart Rate 61 65 67 Respiratory 16 13 22 Rate Blood Pressure 92/68 103/74 105/86 H O2 Saturation 96 98 98 Oxygen O2 Source Room air - EKG (time done) 1127 Rate: Rate (enter#) (56) Rhythm: NSR [place]: Normal Intervals: Normal CO QRS: Normal Ischemia: Non specific changes - Labs Labs: Laboratory Tests 10/25/20 10/25/20 10/25/20 11:14 11:45 11:45 WBC 7.5 RBC 4.59 Hgb 13.6 Hct 41.3 MCV 90.0 MCH 29.6 MCHC 32.9 RDW 13.4 Plt Count 243 MPV 11.1 H Neut # (Auto) 4.9 Lymph # (Auto) 1.8 [place] # (Auto) 0.6 Eos # (Auto) 0.1 Baso # (Auto) 0.0 Absolute Nucleated RBC 0.00 Nucleated RBC % 0.0 Sodium 139 Potassium 3.8 Chloride 106 Carbon Dioxide 24 Anion Gap 9.0 BUN 14 Creatinine 0.6 Estimated GFR (MDRD) 97 Glucose 102 H Lactic Acid Calcium 9.4 Total Bilirubin 0.6 AST 14 ALT 19 Alkaline Phosphatase 75 Troponin I High Sens Total Protein 6.1 L Albumin 3.6 Globulin 2.5 Albumin/Globulin Ratio 1.4 Lipase 21 L Urine Color YELLOW Urine Clarity CLOUDY Urine pH 6.0 Ur Specific [place] >=1.030 H Urine Protein 30 H Urine Glucose (UA) NEGATIVE Urine Ketones NEGATIVE Urine Occult Blood MODERATE H Urine Nitrite POSITIVE H Urine Bilirubin NEGATIVE Urine Urobilinogen 0.2 (NORMAL) Ur Leukocyte Esterase MODERATE H Urine RBC 11-25 H Urine WBC >25 H Urine WBC Clumps PRESENT Ur Squamous Epith Cells RARE Squamous Urine Crystals 0-2 Calcium Oxalate Urine Bacteria Moderate H Ur Microscopic Review INDICATED Urine Culture Comments INDICATED 10/25/20 10/25/20 11:45 11:45 WBC RBC Hgb Hct MCV MCH MCHC RDW Plt Count MPV Neut # (Auto) Lymph # (Auto) [place] # (Auto) Eos # (Auto) Baso # (Auto) Absolute Nucleated RBC Nucleated RBC % Sodium Potassium Chloride Carbon Dioxide Anion Gap BUN Creatinine Estimated GFR (MDRD) Glucose Lactic Acid 1.1 Calcium Total Bilirubin AST ALT Alkaline Phosphatase Troponin I High Sens 8.2 Total Protein Albumin Globulin Albumin/Globulin Ratio Lipase Urine Color Urine Clarity Urine pH Ur Specific [place] Urine Protein Urine Glucose (UA) Urine Ketones Urine Occult Blood Urine Nitrite Urine Bilirubin Urine Urobilinogen Ur Leukocyte Esterase Urine RBC Urine WBC Urine WBC Clumps Ur Squamous Epith Cells Urine Crystals Urine Bacteria Ur Microscopic Review Urine Culture Comments PD MEDICAL DECISION MAKING - ED course Complexity details: reviewed results, re-evaluated patient, considered differential, d/w family ED course: 75-year-old female with what appears to be a UTI. We will treat her for this with Rocephin here. Placed on oral antibiotics for home. IV fluids given as well. Has been confirmed that she is at her normal baseline. Protective boots were given for her heels to help prevent pressure ulcers at home. Social work met with the patient and her , they have resources at home and are comfortable with the level of care at home. counseled regarding signs and symptoms for which I believe and urgent re-evaluation would be necessary. with good understanding of and agreement to plan and is comfortable going home at this time This document was made in part using voice recognition software. While efforts are made to proofread this document, sound alike and grammatical errors may occur. Departure - Departure Disposition: 01 Home, Self Care Clinical Impression: Dehydration Altered mental status Qualifiers: Altered mental status type: unspecified Qualified Code(s): R41.82 - Altered m ental status, unspecified UTI (urinary tract infection) Qualifiers: Urinary tract infection type: catheter-associated UTI Indwelling urinary catheter type: unspecified Encounter type: initial encounter Qualified Code(s): T83.511A - Infection and inflammatory reaction due to indwelling urethral catheter, initial encounter Instructions: ED UTI Cystitis Female Follow-Up: TERESA LEVIN MD [Primary Care Provider] - Within 1 week Prescriptions: Cefpodoxime Proxetil [Vantin] 100 mg PO Q12H #14 tablet Comments: Follow-up with her doctor for further care. Return if she worsens. Take all antibiotics until gone. Discharge Date/Time: 10/25/20 14:01
[2020-10-25 11:39] LABS: BILIRUBIN,URINE NEGATIVE (NEGATIVE); GLUCOSE, URINE (UA) NEGATIVE (NEGATIVE); KETONES,URINE (UA) NEGATIVE (NEGATIVE); LEUKOCYTE ESTERASE, URINE MODERATE (NEGATIVE); NITRITE,URINE POSITIVE (NEGATIVE); OCCULT BLOOD,URINE MODERATE (NEGATIVE); PROTEIN,URINE 30 mg/dL (NEGATIVE); UROBILINOGEN,URINE 0.2 (NORMAL) E.U./dL (NORMAL)
[2020-10-25 11:42] LABS: CLARITY,URINE CLOUDY (CLEAR)
[2020-10-25 11:51] LABS: BACTERIA,URINE Moderate /HPF (None Seen); CRYSTALS,URINE 0-2 Calcium Oxalate /LPF; SQUAMOUS EPITHELIAL CELL,UR RARE Squamous (<= Few); WBC CLUMPS,URINE PRESENT
[2020-10-25 11:52] LABS: WBC,URINE >25 /HPF (0-5)
[2020-10-25 11:52] LABS: BASOPHILS % (AUTO) 0.5 %; EOSINOPHILS # (AUTO) 0.1 10^3/uL (0.0-0.7); EOSINOPHILS % (AUTO) 1.6 %; HCT - HEMATOCRIT 41.3 % (37.0-47.0); HGB - HEMOGLOBIN 13.6 g/dL (12.0-16.0); LYMPHOCYTES # (AUTO) 1.8 10^3/uL (1.5-3.5); LYMPHOCYTES % (AUTO) 23.5 %; MEAN CORPUSCULAR HEMOGLOBIN 29.6 pg (27.0-31.0); MEAN CORPUSCULAR HGB CONC 32.9 g/dL (32.0-36.0); MEAN PLATELET VOLUME 11.1 fL (7.9-10.8); MONOCYTES # (AUTO) 0.6 10^3/uL (0.0-1.0); MONOCYTES % (AUTO) 7.8 %; NEUTROPHILS # (AUTO) 4.9 10^3/uL (1.5-6.6); NEUTROPHILS % (AUTO) 66.2 %; PLT - PLATELET COUNT 243 10^3/uL (130-450); RED BLOOD COUNT 4.59 10^6/uL (4.20-5.40); RED CELL DISTRIBUTION WIDTH 13.4 % (12.0-15.0); WHITE BLOOD COUNT 7.5 x10^3/uL (4.8-10.8)
[2020-10-25 12:07] LABS: ALBUMIN 3.6 g/dL (3.2-5.5); ALBUMIN/GLOBULIN RATIO 1.4 (1.0-2.2); BILIRUBIN,TOTAL 0.6 mg/dL (0.2-1.0); CALCIUM 9.4 mg/dL (8.5-10.3); CREATININE 0.6 mg/dL (0.4-1.0); POTASSIUM 3.8 mmol/L (3.5-5.0); TOTAL PROTEIN 6.1 g/dL (6.7-8.2)
[2020-10-25] MEDS ORDERED: cefTRIAXone 1 GM VIAL IVP STA (12:21)
[2020-10-25 13:59] VITALS: BP 105/86
--- NOTE | 2020-10-27 16:21 | ED Physician Documentation ---
ED Addendum - Addendum Addendum: 10/27/20 16:21 Patient has a chronic indwelling Daomn catheter in place. Cultures reviewed. The Cefpodoxime should be active against the Klebsiella and Enterobacter, but not Enterococcus. Asked nurse to call patient and have her follow-up with PCP for reevaluation and to return if worse.
== END 2020-10-25 14:01 | disposition home or self-care (01) ==
LOC: ED 11:06
DX: T83.511A Infection and inflammatory reaction due to indwelling urethral catheter, initial encounter (principal); N39.0 Urinary tract infection, site not specified; E86.0 Dehydration; I48.91 Unspecified atrial fibrillation
CPT/HCPCS: 36415; 80053; 81001; 81003; 83605; 83690; 84484; 85025; 87077; 87086; 87181; 93005; 96361; 96374; 99281

== ENCOUNTER 2020-10-25 14:12 | Outpatient (CLI) | payer MEDICARE | END 2020-10-25 14:13 | disposition home or self-care (01) | LOC: EMS 14:12 | PROVIDERS: ATTEND Emergency Medicine | DX: F03.90 Unspecified dementia, unspecified severity, without behavioral disturbance, psychotic disturbance, mood disturbance, and anxiety (principal) | CPT/HCPCS: A0425; A0428 ==

== ENCOUNTER 2020-11-02 06:31 | Outpatient (CLI) | payer MEDICARE | END 2020-11-02 06:32 | disposition critical access hospital (66) | LOC: EMS 06:31 | DX: R40.4 Transient alteration of awareness (principal) | CPT/HCPCS: A0425; A0429 ==

== ENCOUNTER 2020-11-02 06:41 | Emergency (ER) | payer MEDICARE ==
[2020-11-02 06:54] VITALS: BP 121/104
--- NOTE | 2020-11-02 06:59 | ED Physician Documentation ---
History of Present Illness - Stated complaint Stated Complaint: AMS - Chief complaint Chief Complaint: Neuro - History obtained from History obtained from: EMS - Additonal information Additional information: 75-year-old woman with advanced dementia who was reportedly in her usual state of health, the heard a gasp as she was moving in the hospital bed and he started CPR. Now is reportedly back to normal. Patient evaluated on arrival, but not yet here. History is limited due to advanced dementia. Review of Systems Unable to obtain: Dementia PD PAST MEDICAL HISTORY - Past Medical History Cardiovascular: Atrial fibrillation Respiratory: Shortness of breath Neuro: Dementia Endocrine/Autoimmune: None GI: None RN FIRST ASSIST: None : None HEENT: None Psych: Anxiety Musculoskeletal: None Derm: None - Past Surgical History Past Surgical History: Yes /RN FIRST ASSIST: Hysterectomy - Present Medications Home Medications: Ambulatory Orders Medication Instructions Recorded Confirmed Galantamine [Razadyne] 4 mg PO DAILY 11/19/13 12/01/18 HYDROcod/ACETAM 5/325 [Vicodin 1 - 2 ea PO Q6H PRN #15 tablet 11/19/13 12/01/18 5/325] methocarbamoL [Robaxin-750] 750 mg PO Q6HR PRN #20 tablet 11/19/13 12/01/18 Famotidine [Pepcid] 20 mg PO BID #60 tablet 12/01/18 Cephalexin Suspension [Keflex] 750 mg PO BID #150 ml 04/07/19 Phenazopyridine HCl [Pyridium] 100 mg PO TID PRN #15 tablet 04/07/19 Cefpodoxime Proxetil [Vantin] 100 mg PO Q12H #14 tablet 10/25/20 Sertraline HCl [Zoloft] 20 mg PO DAILY 10/25/20 10/25/20 - Allergies Allergies/Adverse Reactions: Allergies Allergy/AdvReac Type Severity Reaction Status Date / Time No Known Drug Allergies Allergy Verified 10/25/20 11:21 - Social History Does the pt smoke?: No Smoking Status: Never smoker Does the pt drink ETOH?: No Does the pt have substance abuse?: No - Immunizations Immunizations are current?: Yes - POLST Patient has POLST: No PD ED PE NORMAL - Vitals Vital signs reviewed: Yes - General General: Other (She arouses to stimulus and mumbles almost incoherently.) - HEENT HEENT: PERRL, EOMI - Neck Neck: No bony TTP - Cardiac Cardiac: RRR, No murmur - Respiratory Respiratory: No respiratory distress, Clear bilaterally - Abdomen Abdomen: Non tender - Back Back: No CVA TTP, No spinal TTP - Derm Derm: Normal color, Warm and dry - Neuro Eye Opening: To Pain Motor: Localizes to Pain Verbal: Inappropriate GCS Score: 10 Results - Vitals Vitals: Vital Signs - 24 hr 11/02/20 06:45 Temperature 37.1 C Heart Rate 73 Respiratory 16 Rate Blood Pressure 121/104 H O2 Saturation 100 Oxygen O2 Source Room air - Labs Labs: Laboratory Tests 11/02/20 11/02/20 07:12 07:12 WBC 6.7 RBC 4.73 Hgb 14.1 Hct 42.1 MCV 89.0 MCH 29.8 MCHC 33.5 RDW 13.2 Plt Count 304 MPV 11.1 H Neut # (Auto) 4.3 Lymph # (Auto) 1.5 [place] # (Auto) 0.6 Eos # (Auto) 0.3 Baso # (Auto) 0.1 Absolute Nucleated RBC 0.00 Nucleated RBC % 0.0 Sodium 142 Potassium 3.8 Chloride 108 Carbon Dioxide 26 Anion Gap 8.0 BUN 8 Creatinine 0.6 Estimated GFR (MDRD) 97 Glucose 101 H Calcium 9.6 - Rads (name of study) 1v cxr Radiology: EMP read contemporaneously PD MEDICAL DECISION MAKING - ED course ED course: arrived at bedside and corroborated the above history. It sounds like she was choking on mucus or aspirated. She is now back at her baseline. Labs and chest x-ray are unremarkable. We had a long talk about goals of care. He asked how this could be prevented in the future and we discussed increasing hydration, reflux precautions. Also discussed the possibility of G-tube feeding but she had made it very clear that that was not in her wishes prior to becoming so demented. We discussed whether CPR was in the goals of care to, he has some thinking to do about it. He did request that we change out her Damon. She was due for that today and an RN was going to visit today to do that, we will go ahead and do that. Departure - Departure Disposition: 01 Home, Self Care Clinical Impression: Dementia Qualifiers: Dementia type: Alzheimer's Alzheimer's disease onset: unspecified onset Dementia behavioral disturbance: without behavioral disturbance Qualified Code(s): G30.9 - Alzheimer's disease, unspecified; F02.80 - Dementia in other diseases classified elsewhere without behavioral disturbance GERD (gastroesophageal reflux disease) Qualifiers: Esophagitis presence: esophagitis presence not specified Qualified Code(s): K21.9 - Gastro-esophageal reflux disease without esophagitis Choking Qualifiers: Encounter type: initial encounter Qualified Code(s): T17.308A - Unspecified foreign body in larynx causing other injury, initial encounter Condition: Stable Record reviewed to determine appropriate education?: Yes Instructions: ED Dementia Caregiver Support
[2020-11-02 07:31] LABS: CALCIUM 9.6 mg/dL (8.5-10.3); CREATININE 0.6 mg/dL (0.4-1.0); POTASSIUM 3.8 mmol/L (3.5-5.0)
[2020-11-02 07:36] LABS: BASOPHILS # (AUTO) 0.1 10^3/uL (0.0-0.1); BASOPHILS % (AUTO) 0.7 %; EOSINOPHILS # (AUTO) 0.3 10^3/uL (0.0-0.7); EOSINOPHILS % (AUTO) 4.3 %; HCT - HEMATOCRIT 42.1 % (37.0-47.0); HGB - HEMOGLOBIN 14.1 g/dL (12.0-16.0); LYMPHOCYTES # (AUTO) 1.5 10^3/uL (1.5-3.5); LYMPHOCYTES % (AUTO) 21.8 %; MEAN CORPUSCULAR HEMOGLOBIN 29.8 pg (27.0-31.0); MEAN CORPUSCULAR HGB CONC 33.5 g/dL (32.0-36.0); MEAN PLATELET VOLUME 11.1 fL (7.9-10.8); MONOCYTES # (AUTO) 0.6 10^3/uL (0.0-1.0); MONOCYTES % (AUTO) 8.5 %; NEUTROPHILS # (AUTO) 4.3 10^3/uL (1.5-6.6); NEUTROPHILS % (AUTO) 64.3 %; PLT - PLATELET COUNT 304 10^3/uL (130-450); RED BLOOD COUNT 4.73 10^6/uL (4.20-5.40); RED CELL DISTRIBUTION WIDTH 13.2 % (12.0-15.0); WHITE BLOOD COUNT 6.7 x10^3/uL (4.8-10.8)
--- NOTE | 2020-11-02 07:46 | XRAY Report ---
PROCEDURE: Chest 1 View X-Ray INDICATIONS: gasping TECHNIQUE: One view of the chest was acquired. COMPARISON: 09/12/2020. FINDINGS: Surgical changes and devices: None. Lungs and pleura: No pleural effusions or pneumothorax. Lungs are clear. Mediastinum: Mediastinal contours appear normal. Heart size is normal. Bones and chest wall: No suspicious bony lesions. Overlying soft tissues appear unremarkable. IMPRESSION: No acute cardiopulmonary disease process. Reviewed by: Marysol Kate MD, PhD on 11/02/2020 7:44 AM PDT Approved by: Marysol Kate MD, PhD on 11/02/2020 7:44 AM PDT Station ID: [id number]
== END 2020-11-02 09:47 | disposition home or self-care (01) ==
LOC: EDUNIT# → ED 06:41 → SUPCPDRO 06:41 → ED 09:47
DX: G30.9 Alzheimer's disease, unspecified (principal); F02.80 Dementia in other diseases classified elsewhere, unspecified severity, without behavioral disturbance, psychotic disturbance, mood disturbance, and anxiety; K21.9 Gastro-esophageal reflux disease without esophagitis; R09.89 Other specified symptoms and signs involving the circulatory and respiratory systems; I48.91 Unspecified atrial fibrillation; F32.9 Major depressive disorder, single episode, unspecified
CPT/HCPCS: 36415; 51702; 80048; 85025; 99283; 99284

== ENCOUNTER 2020-11-02 09:49 | Outpatient (CLI) | payer MEDICARE | END 2020-11-02 09:50 | disposition home or self-care (01) | LOC: EMS 09:49 | PROVIDERS: ATTEND Emergency Medicine | DX: F03.90 Unspecified dementia, unspecified severity, without behavioral disturbance, psychotic disturbance, mood disturbance, and anxiety (principal); R53.83 Other fatigue | CPT/HCPCS: A0425; A0428 ==

== ENCOUNTER 2020-12-21 12:10 | Outpatient (CLI) | payer MEDICARE | END 2020-12-21 12:11 | disposition critical access hospital (66) | LOC: EMS 12:10 | DX: T83.091A Other mechanical complication of indwelling urethral catheter, initial encounter (principal) | CPT/HCPCS: A0425; A0429 ==

== ENCOUNTER 2020-12-21 12:25 | Emergency (ER) | payer MEDICARE ==
[2020-12-21 12:34] VITALS: BP 100/55
--- NOTE | 2020-12-21 12:37 | ED Physician Documentation ---
PD HPI FEMALE - Stated complaint Stated Complaint: CATH ISSUE - Chief complaint Chief Complaint: Abd Pain - History obtained from History obtained from: EMS, Caregiver - History of Present Illness Timing - onset: Today, Last night Timing - duration: Days (1) Timing - details: Abrupt onset Associated symptoms: Other (caregivers did not note any output from wharton this morning. No fever nor abd pain. Patient states lower abd fullness.). No: Fever Contributing factors: Other (has chronic wharton.) Recently seen: Not recently seen Review of Systems Constitutional: denies: Fever, Chills Nose: denies: Rhinorrhea / runny nose, Congestion Throat: denies: Sore throat Respiratory: denies: Cough GI: reports: Abdominal Swelling (fulness suprapubic). denies: Abdominal Pain, Nausea, Vomiting PD PAST MEDICAL HISTORY - Past Medical History Cardiovascular: Atrial fibrillation Respiratory: Shortness of breath Neuro: Dementia Endocrine/Autoimmune: None GI: None MANAGER OF OPERATIONS: None : None HEENT: None Psych: Anxiety Musculoskeletal: None Derm: None - Past Surgical History Past Surgical History: Yes /MANAGER OF OPERATIONS: Hysterectomy - Present Medications Home Medications: Ambulatory Orders Medication Instructions Recorded Confirmed Galantamine [Razadyne] 4 mg PO DAILY 11/19/13 12/01/18 HYDROcod/ACETAM 5/325 [Vicodin 1 - 2 ea PO Q6H PRN #15 tablet 11/19/13 12/01/18 5/325] methocarbamoL [Robaxin-750] 750 mg PO Q6HR PRN #20 tablet 11/19/13 12/01/18 Famotidine [Pepcid] 20 mg PO BID #60 tablet 12/01/18 Cephalexin Suspension [Keflex] 750 mg PO BID #150 ml 04/07/19 Phenazopyridine HCl [Pyridium] 100 mg PO TID PRN #15 tablet 04/07/19 Cefpodoxime Proxetil [Vantin] 100 mg PO Q12H #14 tablet 10/25/20 Sertraline HCl [Zoloft] 20 mg PO DAILY 10/25/20 10/25/20 - Allergies Allergies/Adverse Reactions: Allergies Allergy/AdvReac Type Severity Reaction Status Date / Time Unable to Assess Allergy Unverified 12/21/20 12:31 - Social History Does the pt smoke?: No Smoking Status: Never smoker Does the pt drink ETOH?: No Does the pt have substance abuse?: No - Immunizations Immunizations are current?: Yes - POLST Patient has POLST: No PD ED PE NORMAL - Vitals Vital signs reviewed: Yes - General General: No acute distress, Well developed/nourished. No: Alert and oriented X 3 (alert and conversant, oriented to person and place. ) - Abdomen Abdomen: Normal bowel sounds, Soft, Non tender, No organomegaly, Other (some suprapubic fullness but not too much. Bladder scanner showed only 90-kayla ml in bladder. Wharton in place and not having any output. ) - Rectal Rectal: Deferred - Back Back: No CVA TTP - Derm Derm: Normal color, Warm and dry - Extremities Extremities: No edema, No calf tenderness / cord Results - Vitals Vitals: Vital Signs - 24 hr 12/21/20 12:31 Temperature 36.4 C L Heart Rate 67 Respiratory 18 Rate Blood Pressure 100/55 L O2 Saturation 99 Oxygen O2 Source Room air - Labs Labs: Laboratory Tests 12/21/20 12/21/20 13:04 13:21 WBC 9.6 RBC 4.44 Hgb 13.3 Hct 39.3 MCV 88.5 MCH 30.0 MCHC 33.8 RDW 13.3 Plt Count 285 MPV 11.4 H Neut # (Auto) 6.8 H Lymph # (Auto) 1.7 [place] # (Auto) 0.8 Eos # (Auto) 0.2 Baso # (Auto) 0.1 Absolute Nucleated RBC 0.00 Nucleated RBC % 0.0 Sodium 140 Potassium 3.7 Chloride 105 Carbon Dioxide 25 Anion Gap 10.0 BUN 23 H Creatinine 0.6 Estimated GFR (MDRD) 97 Glucose 103 H Calcium 9.1 PD MEDICAL DECISION MAKING - ED course Complexity details: re-evaluated patient (wharton exchanged by nursing with then output of clear yellow urine. She is not having any infectious symptoms, so did not send for UA.), considered differential, d/w patient Departure - Departure Disposition: 01 Home, Self Care Clinical Impression: Wharton catheter problem Qualifiers: Encounter type: initial encounter Qualified Code(s): T83.9XXA - Unspecified complication of genitourinary prosthetic device, implant and graft, initial encounter Condition: Stable Record reviewed to determine appropriate education?: Yes Instructions: ED Catheter Care Wharton Comments: Continue usual medications and treatments and catheter care. Return as needed. Discharge Date/Time: 12/21/20 15:42
[2020-12-21 13:17] LABS: CALCIUM 9.1 mg/dL (8.5-10.3); CREATININE 0.6 mg/dL (0.4-1.0); POTASSIUM 3.7 mmol/L (3.5-5.0)
[2020-12-21 13:26] LABS: BASOPHILS # (AUTO) 0.1 10^3/uL (0.0-0.1); BASOPHILS % (AUTO) 0.5 %; EOSINOPHILS # (AUTO) 0.2 10^3/uL (0.0-0.7); EOSINOPHILS % (AUTO) 2.1 %; HCT - HEMATOCRIT 39.3 % (37.0-47.0); HGB - HEMOGLOBIN 13.3 g/dL (12.0-16.0); LYMPHOCYTES # (AUTO) 1.7 10^3/uL (1.5-3.5); LYMPHOCYTES % (AUTO) 17.8 %; MEAN CORPUSCULAR HGB CONC 33.8 g/dL (32.0-36.0); MEAN CORPUSCULAR VOLUME 88.5 fL (81.0-99.0); MEAN PLATELET VOLUME 11.4 fL (7.9-10.8); MONOCYTES # (AUTO) 0.8 10^3/uL (0.0-1.0); MONOCYTES % (AUTO) 8.1 %; NEUTROPHILS # (AUTO) 6.8 10^3/uL (1.5-6.6); NEUTROPHILS % (AUTO) 71.3 %; PLT - PLATELET COUNT 285 10^3/uL (130-450); RED BLOOD COUNT 4.44 10^6/uL (4.20-5.40); RED CELL DISTRIBUTION WIDTH 13.3 % (12.0-15.0); WHITE BLOOD COUNT 9.6 x10^3/uL (4.8-10.8)
== END 2020-12-21 15:42 | disposition home or self-care (01) ==
LOC: EDBD → ED 12:25
DX: T83.9XXA Unspecified complication of genitourinary prosthetic device, implant and graft, initial encounter (principal); F03.90 Unspecified dementia, unspecified severity, without behavioral disturbance, psychotic disturbance, mood disturbance, and anxiety; I48.91 Unspecified atrial fibrillation
CPT/HCPCS: 36415; 51702; 51798; 80048; 85025; 99282; 99283

== ENCOUNTER 2020-12-21 15:26 | Outpatient (CLI) | payer MEDICARE | END 2020-12-21 15:27 | disposition home or self-care (01) | LOC: EMS 15:26 | PROVIDERS: ATTEND Emergency Medicine | DX: Z74.01 Bed confinement status (principal) | CPT/HCPCS: A0425; A0428 ==

== ENCOUNTER 2020-12-30 13:32 | Outpatient (CLI) | payer MEDICARE | END 2020-12-30 13:33 | disposition critical access hospital (66) | LOC: EMS 13:32 | DX: R82.998 Other abnormal findings in urine (principal) | CPT/HCPCS: A0425; A0429 ==

== ENCOUNTER 2020-12-30 13:42 | Emergency (ER) | payer MEDICARE ==
--- NOTE | 2020-12-30 13:51 | ED Physician Documentation ---
History of Present Illness - Stated complaint Stated Complaint: CATH ISSUE - Additonal information Additional information: 75-year-old female brought to the emergency department for evaluation of purulent draining urine from her Wharton catheter. She has a history of a chronic indwelling Wharton catheter. Patient was seen in this emergency department on 21 December with catheter issues and the catheter was exchanged. Per EMS the family has reported 2 weeks of cloudy urine with today purulent drainage. There has been no fever. History is absent from the patient secondary to a history of dementia. Per nursing staff she does appear to be at baseline mentation. Review of Systems Unable to obtain: Dementia PD PAST MEDICAL HISTORY - Past Medical History Cardiovascular: Atrial fibrillation Respiratory: Shortness of breath Neuro: Dementia Endocrine/Autoimmune: None GI: None OUTSOLE ROUNDER: None : None HEENT: None Psych: Anxiety Musculoskeletal: None Derm: None - Past Surgical History Past Surgical History: Yes /OUTSOLE ROUNDER: Hysterectomy - Present Medications Home Medications: Ambulatory Orders Medication Instructions Recorded Confirmed Galantamine [Razadyne] 4 mg PO DAILY 11/19/13 12/01/18 HYDROcod/ACETAM 5/325 [Vicodin 1 - 2 ea PO Q6H PRN #15 tablet 11/19/13 12/01/18 5/325] methocarbamoL [Robaxin-750] 750 mg PO Q6HR PRN #20 tablet 11/19/13 12/01/18 Famotidine [Pepcid] 20 mg PO BID #60 tablet 12/01/18 Cephalexin Suspension [Keflex] 750 mg PO BID #150 ml 04/07/19 Phenazopyridine HCl [Pyridium] 100 mg PO TID PRN #15 tablet 04/07/19 Cefpodoxime Proxetil [Vantin] 100 mg PO Q12H #14 tablet 10/25/20 Sertraline HCl [Zoloft] 20 mg PO DAILY 10/25/20 10/25/20 Cefpodoxime Proxetil [Vantin] 100 mg PO Q12H #20 tablet 12/30/20 - Allergies Allergies/Adverse Reactions: Allergies Allergy/AdvReac Type Severity Reaction Status Date / Time No Known Drug Allergies Allergy Verified 12/30/20 14:11 - Social History Does the pt smoke?: No Smoking Status: Never smoker Does the pt drink ETOH?: No Does the pt have substance abuse?: No - Immunizations Immunizations are current?: Yes - POLST Patient has POLST: No PD ED PE EXPANDED - General General: Alert, No acute distress, Other (debilitated, chronically ill appearing woman) - Cardiac Cardiac: Regular Rate, Radial strong equal, Pedal strong equal, Cap refill < 2 sec - Respiratory Respiratory: Clear to ausultation odalis. No: Distress, Labored - Abdomen Abdomen: Normal Bowel sounds. No: Tender to palpation - Female Female : Normal external, Other (wharton catheter in place; draining milky sludge) - Derm Derm: Normal color, Warm and dry. No: Rash - Extremities Extremities: Normal. No: Deformity, Tenderness - Neuro Neuro: Alert and Oriented X 3, CNII-XII intact - GCS Eye Opening: Spontaneous Motor: Obeys Commands Verbal: Oriented Total: 15 Results - Vitals Vitals: Vital Signs - 24 hr 12/30/20 12/30/20 13:40 14:13 Temperature 36.5 C Heart Rate 65 65 Respiratory 16 16 Rate Blood Pressure 109/67 102/76 O2 Saturation 94 94 Oxygen O2 Source Room air - Labs Labs: Laboratory Tests 12/30/20 12/30/20 12/30/20 14:03 14:15 14:15 WBC 8.0 RBC 4.84 Hgb 14.3 Hct 43.7 MCV 90.3 MCH 29.5 MCHC 32.7 RDW 13.2 Plt Count 304 MPV 11.9 H Neut # (Auto) 5.3 Lymph # (Auto) 1.7 [place] # (Auto) 0.7 Eos # (Auto) 0.2 Baso # (Auto) 0.1 Absolute Nucleated RBC 0.00 Nucleated RBC % 0.0 Sodium Potassium Chloride Carbon Dioxide Anion Gap BUN Creatinine Estimated GFR (MDRD) Glucose Lactic Acid 1.4 Calcium Total Bilirubin AST ALT Alkaline Phosphatase Total Protein Albumin Globulin Albumin/Globulin Ratio Lipase Urine Color YELLOW Urine Clarity SL. CLOUDY Urine pH 7.0 Ur Specific [place] 1.020 Urine Protein 30 H Urine Glucose (UA) NEGATIVE Urine Ketones NEGATIVE Urine Occult Blood SMALL H Urine Nitrite POSITIVE H Urine Bilirubin NEGATIVE Urine Urobilinogen 0.2 (NORMAL) Ur Leukocyte Esterase SMALL H Urine RBC 0-5 Urine WBC 11-25 H Ur Squamous Epith Cells NONE SEEN Urine Bacteria Moderate H Ur Microscopic Review INDICATED Urine Culture Comments INDICATED 12/30/20 14:27 WBC RBC Hgb Hct MCV MCH MCHC RDW Plt Count MPV Neut # (Auto) Lymph # (Auto) [place] # (Auto) Eos # (Auto) Baso # (Auto) Absolute Nucleated RBC Nucleated RBC % Sodium 141 Potassium 4.1 Chloride 105 Carbon Dioxide 28 Anion Gap 8.0 BUN 29 H Creatinine 0.6 Estimated GFR (MDRD) 97 Glucose 109 H Lactic Acid Calcium 9.3 Total Bilirubin 0.6 AST 16 ALT 20 Alkaline Phosphatase 75 Total Protein 6.5 L Albumin 3.8 Globulin 2.7 Albumin/Globulin Ratio 1.4 Lipase 27 Urine Color Urine Clarity Urine pH Ur Specific [place] Urine Protein Urine Glucose (UA) Urine Ketones Urine Occult Blood Urine Nitrite Urine Bilirubin Urine Urobilinogen Ur Leukocyte Esterase Urine RBC Urine WBC Ur Squamous Epith Cells Urine Bacteria Ur Microscopic Review Urine Culture Comments PD MEDICAL DECISION MAKING - ED course Complexity details: reviewed results, considered differential, d/w family ED course: 75-year-old lady presents the emergency department for evaluation of cloudy and purulent appearing urine. She does have a chronic indwelling Wharton catheter that was changed on 21 December here in this emergency department. Her and care provider had noted that over the last few weeks her urine has begun to get progressively cloudy. Patient has not had any fevers abdominal pain or changes in her baseline mentation at home. Here on presentation her urine was noted to be frankly purulent and cloudy. The Wharton catheter was exchanged at the bedside and a new sample of urine was sent to the lab. This urine is consistent with bacterial infection. It should be noted that once the new catheter was placed she did have generally clear urine draining. Screening labs are obtained. No elevation of white blood cell count or lactate. She has been normotensive, afebrile and without tachycardia. On exam I was unable to elicit any abdominal tenderness thus advanced imaging was deferred. hx and exam not c/w sepsis or ascending infection Patient was given Ancef trioxsalen here in the emergency department. Urine sensitivities are pending but we will start her on Cefpodoxime. Plan was discussed with the at the bedside he feels comfortable taking her home. Advise close follow-up with primary care provider. Emergent return precautions were discussed. Departure - Departure Disposition: 01 Home, Self Care Clinical Impression: UTI (urinary tract infection) due to urinary indwelling Wharton catheter Qualifiers: Indwelling urinary catheter type: indwelling urethral catheter Encounter type: initial encounter Qualified Code(s): T83.511A - Infection and inflammatory reaction due to indwelling urethral catheter, initial encounter; N39.0 - Urinary tract infection, site not specified Dementia Qualifiers: Dementia type: unspecified type Dementia behavioral disturbance: without behavioral disturbance Qualified Code(s): F03.90 - Unspecified dementia without behavioral disturbance Condition: Stable Record reviewed to determine appropriate education?: Yes Instructions: ED UTI Cystitis Female Prescriptions: Cefpodoxime Proxetil [Vantin] 100 mg PO Q12H #20 tablet Comments: Medina was seen in the emergency department today for very milky appearing urine from her Wharton catheter. The Wharton catheter was exchanged but the urine does show infection. Please fill the prescription for the Cefpodoxime and begin giving to her twice daily as directed. This prescription was electronically transcribed to the [facility] in [place] If at any point you feel that Medina's mentation is changing, she develops any fevers, show signs of abdominal pain or has uncontrolled vomiting then please return immediately to the ER for a second evaluation. Please discuss this ED visit with her primary care provider.
[2020-12-30 14:20] LABS: BILIRUBIN,URINE NEGATIVE (NEGATIVE); GLUCOSE, URINE (UA) NEGATIVE (NEGATIVE); KETONES,URINE (UA) NEGATIVE (NEGATIVE); LEUKOCYTE ESTERASE, URINE SMALL (NEGATIVE); NITRITE,URINE POSITIVE (NEGATIVE); OCCULT BLOOD,URINE SMALL (NEGATIVE); PROTEIN,URINE 30 mg/dL (NEGATIVE); UROBILINOGEN,URINE 0.2 (NORMAL) E.U./dL (NORMAL)
[2020-12-30 14:21] LABS: CLARITY,URINE SL. CLOUDY (CLEAR)
[2020-12-30 14:35] LABS: BACTERIA,URINE Moderate /HPF (None Seen); RBC,URINE 0-5 /HPF (0-5); SQUAMOUS EPITHELIAL CELL,UR NONE SEEN (<= Few)
[2020-12-30 14:36] LABS: BASOPHILS # (AUTO) 0.1 10^3/uL (0.0-0.1); BASOPHILS % (AUTO) 0.9 %; EOSINOPHILS # (AUTO) 0.2 10^3/uL (0.0-0.7); EOSINOPHILS % (AUTO) 2.9 %; HCT - HEMATOCRIT 43.7 % (37.0-47.0); HGB - HEMOGLOBIN 14.3 g/dL (12.0-16.0); LYMPHOCYTES # (AUTO) 1.7 10^3/uL (1.5-3.5); LYMPHOCYTES % (AUTO) 20.8 %; MEAN CORPUSCULAR HEMOGLOBIN 29.5 pg (27.0-31.0); MEAN CORPUSCULAR HGB CONC 32.7 g/dL (32.0-36.0); MEAN CORPUSCULAR VOLUME 90.3 fL (81.0-99.0); MEAN PLATELET VOLUME 11.9 fL (7.9-10.8); MONOCYTES # (AUTO) 0.7 10^3/uL (0.0-1.0); MONOCYTES % (AUTO) 8.6 %; NEUTROPHILS # (AUTO) 5.3 10^3/uL (1.5-6.6); NEUTROPHILS % (AUTO) 66.5 %; PLT - PLATELET COUNT 304 10^3/uL (130-450); RED BLOOD COUNT 4.84 10^6/uL (4.20-5.40); RED CELL DISTRIBUTION WIDTH 13.2 % (12.0-15.0)
[2020-12-30] MEDS ORDERED: cefTRIAXone 1 GM VIAL IVP STA (14:45)
[2020-12-30] MEDS ORDERED: cefTRIAXone 1 GM VIAL IM STA (14:50)
[2020-12-30] MEDS ORDERED: LIDOCAINE 1% 2 ML VIAL MC ONE (14:50)
[2020-12-30 15:02] LABS: ALBUMIN 3.8 g/dL (3.2-5.5); ALBUMIN/GLOBULIN RATIO 1.4 (1.0-2.2); BILIRUBIN,TOTAL 0.6 mg/dL (0.2-1.0); CALCIUM 9.3 mg/dL (8.5-10.3); CREATININE 0.6 mg/dL (0.4-1.0); POTASSIUM 4.1 mmol/L (3.5-5.0); TOTAL PROTEIN 6.5 g/dL (6.7-8.2)
[2020-12-30 15:33] VITALS: BP 101/82
== END 2020-12-30 16:16 | disposition home or self-care (01) ==
LOC: EDUNIT# → ED 13:42
DX: T83.511A Infection and inflammatory reaction due to indwelling urethral catheter, initial encounter (principal); Y84.6 Urinary catheterization as the cause of abnormal reaction of the patient, or of later complication, without mention of misadventure at the time of the procedure; F03.90 Unspecified dementia, unspecified severity, without behavioral disturbance, psychotic disturbance, mood disturbance, and anxiety
CPT/HCPCS: 36415; 51702; 80053; 81001; 81003; 83605; 83690; 85025; 87040; 87077; 87086; 87181; 99283; 99284

== ENCOUNTER 2020-12-30 16:27 | Outpatient (CLI) | payer MEDICARE | END 2020-12-30 16:28 | disposition home or self-care (01) | LOC: EMS 16:27 | PROVIDERS: ATTEND Registered Nurse | DX: Z74.01 Bed confinement status (principal) | CPT/HCPCS: A0425; A0428 ==

== ENCOUNTER 2021-03-08 12:04 | Outpatient (CLI) | payer MEDICARE | END 2021-03-08 12:05 | disposition critical access hospital (66) | LOC: EMS 12:04 | DX: T83.9XXA Unspecified complication of genitourinary prosthetic device, implant and graft, initial encounter (principal) | CPT/HCPCS: A0425; A0429 ==

== ENCOUNTER 2021-03-08 12:15 | Emergency (ER) | payer MEDICARE ==
--- NOTE | 2021-03-08 12:50 | ED Physician Documentation ---
History of Present Illness - Stated complaint Stated Complaint: CATH ISSUES - Chief complaint Chief Complaint: General - History obtained from History obtained from: Family, EMS - History of Present Illness Timing: Today Pain level max: 0 Pain level now: 0 - Additonal information Additional information: Patient is a 76-year-old female with dementia. Lives at home with her . Has chronic urinary incontinence. Has a chronic Damon catheter. The home health nurse could not get the balloon to deflate on the catheter and could not remove the catheter. The catheter has not been draining any urine for over 5 hours. Patient unable to give any history. EMS was called and the patient was sent here. Review of Systems Constitutional: denies: Fever, Chills Nose: denies: Rhinorrhea / runny nose GI: denies: Nausea, Vomiting, Diarrhea Skin: denies: Rash PD PAST MEDICAL HISTORY - Past Medical History Cardiovascular: Atrial fibrillation Respiratory: Shortness of breath Neuro: Dementia Endocrine/Autoimmune: None GI: None HIGH SPEED WARPER TENDER: None : None HEENT: None Psych: Anxiety Musculoskeletal: None Derm: None - Past Surgical History Past Surgical History: Yes /HIGH SPEED WARPER TENDER: Hysterectomy - Present Medications Home Medications: Ambulatory Orders Medication Instructions Recorded Confirmed Galantamine [Razadyne] 4 mg PO DAILY 11/19/13 12/01/18 HYDROcod/ACETAM 5/325 [Vicodin 1 - 2 ea PO Q6H PRN #15 tablet 11/19/13 12/01/18 5/325] methocarbamoL [Robaxin-750] 750 mg PO Q6HR PRN #20 tablet 11/19/13 12/01/18 Famotidine [Pepcid] 20 mg PO BID #60 tablet 12/01/18 Cephalexin Suspension [Keflex] 750 mg PO BID #150 ml 04/07/19 Phenazopyridine HCl [Pyridium] 100 mg PO TID PRN #15 tablet 04/07/19 Cefpodoxime Proxetil [Vantin] 100 mg PO Q12H #14 tablet 10/25/20 Sertraline HCl [Zoloft] 20 mg PO DAILY 10/25/20 10/25/20 Cefpodoxime Proxetil [Vantin] 100 mg PO Q12H #20 tablet 12/30/20 - Allergies Allergies/Adverse Reactions: Allergies Allergy/AdvReac Type Severity Reaction Status Date / Time No Known Drug Allergies Allergy Verified 12/30/20 14:11 - Social History Does the pt smoke?: No Smoking Status: Never smoker Does the pt drink ETOH?: No Does the pt have substance abuse?: No - Immunizations Immunizations are current?: Yes - POLST Patient has POLST: No PD ED PE NORMAL - Vitals Vital signs reviewed: Yes - General General: No acute distress, Well developed/nourished - HEENT HEENT: PERRL, Moist mucous membranes - Neck Neck: Supple, no meningeal sign - Cardiac Cardiac: RRR - Respiratory Respiratory: No respiratory distress, Clear bilaterally - Abdomen Abdomen: Soft, Non tender, Non distended - Back Back: No CVA TTP, No spinal TTP - Derm Derm: Warm and dry - Extremities Extremities: No edema Results - Vitals Vitals: Vital Signs - 24 hr 03/08/21 03/08/21 12:23 16:08 Temperature 36.4 C L Heart Rate 93 73 Respiratory 16 Rate Blood Pressure 92/55 L 99/51 L O2 Saturation 99 99 Oxygen O2 Source Room air PD MEDICAL DECISION MAKING - ED course Complexity details: considered differential, d/w family, d/w animal nutrition consultant ED course: 76-year-old female with severe dementia brought in by her via EMS for a clogged catheter that was unable to be removed. The balloon is not able to be deflated here. The catheter is stuck and unable to be removed or flushed. Discussed the case with Chica Alamo. She states that she has happy to see the patient in the office to remove the catheter. The patient has around 200 cc of urine in her bladder currently. She is leaking some urine as well. Social work was consulted. There is no availability of an ambulance to take her to the urology office and back home. The states that he cannot drive her. Therefore transportation was scheduled for tomorrow morning. As she is leaking urine around the catheter, we will have her limit her liquid intake. Should she worsen prior to that time, she should be transported directly to [facility]. Family counseled regarding signs and symptoms for which I believe and urgent re-evaluation would be necessary. with good understanding of and agreement to plan and is comfortable going home at this time This document was made in part using voice recognition software. While efforts a re made to proofread this document, sound alike and grammatical errors may occur. Departure - Departure Disposition: 01 Home, Self Care Clinical Impression: Damon catheter problem Qualifiers: Encounter type: initial encounter Qualified Code(s): T83.9XXA - Unspecified complication of genitourinary prosthetic device, implant and graft, initial encounter Condition: Good Instructions: ED Catheter Care Damon Follow-Up: MARYANN ALAMO PA-C [Physician No Access] - Tomorrow Comments: you are going to the [facility] urology office tomorrow at 0800 to have the catheter removed. The office is on the third floor. I spoke with Maryann Alamo today. As there is no transportation available to the clinic and back today, urology has requested that you keep her with minimal fluid intake today and schedule the transportation for 8 AM tomorrow. They will remove the catheter at that time. If she worsens before then, I would recommend calling 911 to take her to [facility] for emergency urology consult. Discharge Date/Time: 03/08/21 17:00
[2021-03-08 16:09] VITALS: BP 99/51
== END 2021-03-08 17:00 | disposition home or self-care (01) ==
LOC: EDUNIT# → EDBD → ED 12:15
DX: T83.031A Leakage of indwelling urethral catheter, initial encounter (principal); I48.91 Unspecified atrial fibrillation; F03.90 Unspecified dementia, unspecified severity, without behavioral disturbance, psychotic disturbance, mood disturbance, and anxiety
CPT/HCPCS: 51798; 99283

== ENCOUNTER 2021-03-08 17:10 | Outpatient (CLI) | payer MEDICARE | END 2021-03-08 17:11 | disposition home or self-care (01) | LOC: EMS 17:10 | PROVIDERS: ATTEND Emergency Medicine | DX: F03.90 Unspecified dementia, unspecified severity, without behavioral disturbance, psychotic disturbance, mood disturbance, and anxiety (principal); Z74.01 Bed confinement status; T83.9XXA Unspecified complication of genitourinary prosthetic device, implant and graft, initial encounter | CPT/HCPCS: A0425; A0428; A0429 ==

== ENCOUNTER 2022-01-22 07:47 | Outpatient (CLI) | payer MEDICARE | END 2022-01-22 07:48 | disposition critical access hospital (66) | LOC: EMS 07:47 | DX: R09.89 Other specified symptoms and signs involving the circulatory and respiratory systems (principal); Z74.01 Bed confinement status; F03.90 Unspecified dementia, unspecified severity, without behavioral disturbance, psychotic disturbance, mood disturbance, and anxiety | CPT/HCPCS: A0425; A0429 ==

== ENCOUNTER 2022-01-22 07:58 | Emergency (ER) | payer MEDICARE ==
--- NOTE | 2022-01-22 08:41 | XRAY Report ---
PROCEDURE: Chest 1 View X-Ray INDICATIONS: Chest pain TECHNIQUE: One view of the chest was acquired. COMPARISON: 11/02/2020 chest x-ray, 09/12/2020 CT cervical spine FINDINGS: Increased right apical wall airspace opacity with some adjacent pleural thickening/opacity. Increased interstitial markings with Michael B lines. No pleural effusion or pneumothorax. No focal consolidati on. Heart size is normal. IMPRESSION: Increased right apical airspace opacity with adjacent pleural thickening/opacity. Findings presumably represent pleural-parenchymal scarring however a superimposed component of acute infiltrate or neopl asm cannot be strictly excluded. Recommend a CT chest with IV contrast for further evaluation. Reviewed by: Jamarcus Barksdale MD on 01/22/2022 8:39 AM PDT Approved by: Jamarcus Barksdale MD on 01/22/2022 8:39 AM PDT Station ID: [id number]
[2022-01-22 08:42] LABS: BASOPHILS # (AUTO) 0.1 10^3/uL (0.0-0.1); BASOPHILS % (AUTO) 0.9 %; EOSINOPHILS # (AUTO) 0.2 10^3/uL (0.0-0.7); EOSINOPHILS % (AUTO) 2.3 %; HCT - HEMATOCRIT 39.6 % (37.0-47.0); HGB - HEMOGLOBIN 13.1 g/dL (12.0-16.0); LYMPHOCYTES # (AUTO) 1.9 10^3/uL (1.5-3.5); LYMPHOCYTES % (AUTO) 27.9 %; MEAN CORPUSCULAR HEMOGLOBIN 29.4 pg (27.0-31.0); MEAN CORPUSCULAR HGB CONC 33.1 g/dL (32.0-36.0); MEAN CORPUSCULAR VOLUME 88.8 fL (81.0-99.0); MEAN PLATELET VOLUME 10.5 fL (7.9-10.8); MONOCYTES # (AUTO) 0.5 10^3/uL (0.0-1.0); MONOCYTES % (AUTO) 7.1 %; NEUTROPHILS # (AUTO) 4.1 10^3/uL (1.5-6.6); NEUTROPHILS % (AUTO) 61.2 %; PLT - PLATELET COUNT 270 10^3/uL (130-450); RED BLOOD COUNT 4.46 10^6/uL (4.20-5.40); RED CELL DISTRIBUTION WIDTH 12.6 % (12.0-15.0); WHITE BLOOD COUNT 6.6 x10^3/uL (4.8-10.8)
[2022-01-22 08:55] LABS: ALBUMIN 3.7 g/dL (3.2-5.5); ALBUMIN/GLOBULIN RATIO 1.6 (1.0-2.2); BILIRUBIN,TOTAL 0.5 mg/dL (0.2-1.0); CALCIUM 9.4 mg/dL (8.5-10.3); CREATININE 0.6 mg/dL (0.4-1.0); POTASSIUM 3.8 mmol/L (3.5-5.0)
--- NOTE | 2022-01-22 09:40 | ED Physician Documentation ---
PD HPI DYSPNEA - Stated complaint Stated Complaint: SOA - Chief complaint Chief Complaint: Resp - History obtained from History obtained from: Family (spouse), EMS - History of Present Illness Timing - onset: Today (This morning the told the medics that he noted the patient to have unusual breathing and a bit irregular. Reportedly he pulled her off the bed onto the floor gently and was doing CPR because he did not know what else to do. Medics found the patient breathing. No CPR at the time.) Timing - onset during: Light activity ( states he was helping patient get dressed and she seemed to start breathing irratic, slightly wheezing. He laid her on floor and started rescue breathing due to the irregular breathing. no apparent seizure movements.) Timing - duration: Minutes Timing - details: Abrupt onset, Now resolved Inciting event(s): Other (no apparent recent abnormalities per (no illness, fever, new foods/activities).). No: URI Associated symptoms: No: Fever, Cough, Bilateral edema Similar symptoms before: Has not had sx before Review of Systems Unable to obtain: Dementia, Other (info from .) Constitutional: denies: Fever Cardiac: denies: Chest pain / pressure, Pedal edema Respiratory: denies: Dyspnea, Wheezing GI: denies: Abdominal Pain, Vomiting Skin: denies: Rash, Lesions Neurologic: reports: Generalized weakness. 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: None : None HEENT: None Psych: Anxiety Musculoskeletal: None Derm: None - Past Surgical History Past Surgical History: Yes /CAMERA MACHINIST: Hysterectomy - Present Medications Home Medications: Ambulatory Orders Medication Instructions Recorded Confirmed Galantamine [Razadyne] 4 mg PO DAILY 11/19/13 12/01/18 HYDROcod/ACETAM 5/325 [Vicodin 1 - 2 ea PO Q6H PRN #15 tablet 11/19/13 12/01/18 5/325] methocarbamoL [Robaxin-750] 750 mg PO Q6HR PRN #20 tablet 11/19/13 12/01/18 Famotidine [Pepcid] 20 mg PO BID #60 tablet 12/01/18 Cephalexin Suspension [Keflex] 750 mg PO BID #150 ml 01/07/20 Phenazopyridine HCl [Pyridium] 100 mg PO TID PRN #15 tablet 04/07/19 Cefpodoxime Proxetil [Vantin] 100 mg PO Q12H #14 tablet 10/25/20 Sertraline HCl [Zoloft] 20 mg PO DAILY 10/25/20 10/25/20 Cefpodoxime Proxetil [Vantin] 100 mg PO Q12H #20 tablet 12/30/20 - Allergies Allergies/Adverse Reactions: Allergies Allergy/AdvReac Type Severity Reaction Status Date / Time No Known Drug Allergies Allergy Verified 01/22/22 08:21 - Social History Does the pt smoke?: No Smoking Status: Never smoker Does the pt drink ETOH?: No Does the pt have substance abuse?: No - Immunizations Immunizations are current?: Yes - POLST Patient has POLST: No PD ED PE NORMAL - Vitals Vital signs reviewed: Yes - General General: No acute distress, Well developed/nourished. No: Alert and oriented X 3 (minimally verbal and only sounds gibberish with that. She resists straightening her elbows. No tenderness nor deformity. ) - Cardiac Cardiac: RRR, Other (no apparent deformity/bruising at sternal area. ) - Respiratory Respiratory: No respiratory distress, Clear bilaterally - Abdomen Abdomen: Soft, Non tender, Non distended - Female Female : Deferred - Rectal Rectal: Deferred - Back Back: No CVA TTP - Derm Derm: Normal color, Warm and dry - Neuro Neuro: No: Alert and oriented X 3 (blank stare mostly, with some looking around. Nonverbal per her dementia. ) Results - Vitals Vitals: Vital Signs - 24 hr 01/22/22 01/22/22 08:14 10:09 Temperature 37.1 C Heart Rate 83 45 L Respiratory 16 17 Rate Blood Pressure 108/92 H 120/79 O2 Saturation 100 99 Oxygen O2 Source Room air - Labs Labs: Laboratory Tests 01/22/22 01/22/22 08:35 08:35 WBC 6.6 RBC 4.46 Hgb 13.1 Hct 39.6 MCV 88.8 MCH 29.4 MCHC 33.1 RDW 12.6 Plt Count 270 MPV 10.5 Neut # (Auto) 4.1 Lymph # (Auto) 1.9 [place] # (Auto) 0.5 Eos # (Auto) 0.2 Baso # (Auto) 0.1 Absolute Nucleated RBC 0.00 Nucleated RBC % 0.0 Sodium 140 Potassium 3.8 Chloride 108 Carbon Dioxide 23 Anion Gap 9.0 BUN 22 H Creatinine 0.6 Estimated GFR (MDRD) 97 Glucose 97 Calcium 9.4 Total Bilirubin 0.5 AST 15 ALT 19 Alkaline Phosphatase 73 Total Protein 6.0 L Albumin 3.7 Globulin 2.3 Albumin/Globulin Ratio 1.6 Lipase 33 - Rads (name of study) chest xray Radiology: Prelim report reviewed (no infiltrates. Some pleural thickening upper right lung. Likely scarring. Consider biopsy if clinically interested. ), See rad report PD MEDICAL DECISION MAKING - ED course Complexity details: reviewed results (no pneumonia, rib fractures, PtX, infiltrates. Increased right upper pleural thickening likely spasm. not wanting to purseu further workup, given the advanced dementia/etc. ), considered differential (patient is reportedly at baseline now. not in any apprent distress. No chest injury noted. Can check basic labs. Episode may have been brief syncope. No history of seizures but could be new, does not seem pneumonia. Unclear cause of breathing dificulty earlier. ), d/w family (spouse of over 50 years - affirmed the history gotten from EMS. ) Departure - Departure Disposition: 01 Home, Self Care Clinical Impression: Breathing difficulty, Normal respiratory exam, Dementia Condition: Stable Record reviewed to determine appropriate education?: Yes Comments: The chest x-ray is clear without any signs of pneumonia. There is a small area of thickening of the pleura in the upper part of the left lung. At this point probably no further work-up would be needed. Basic blood tests are good and oxygenation and vital signs are good. Its unclear the cause of the irregular breathing earlier this morning. You appear well at this point. Discharge Date/Time: 01/22/22 11:33
[2022-01-22 10:10] VITALS: BP 120/79
== END 2022-01-22 11:33 | disposition home or self-care (01) ==
LOC: EDUNIT# → ED 07:58
DX: R06.89 Other abnormalities of breathing (principal); J92.9 Pleural plaque without asbestos; R53.1 Weakness; F03.90 Unspecified dementia, unspecified severity, without behavioral disturbance, psychotic disturbance, mood disturbance, and anxiety
CPT/HCPCS: 36415; 80053; 83690; 85025; 99283; 99284

== ENCOUNTER 2022-01-22 11:27 | Outpatient (CLI) | payer MEDICARE | END 2022-01-22 11:28 | disposition home or self-care (01) | LOC: EMS 11:27 | PROVIDERS: ATTEND Emergency Medicine | DX: R41.0 Disorientation, unspecified (principal) | CPT/HCPCS: A0425; A0428 ==

== ENCOUNTER 2022-06-25 19:18 | Outpatient (CLI) | payer MEDICARE | END 2022-06-25 19:19 | disposition critical access hospital (66) | LOC: EMS 19:18 | DX: K59.00 Constipation, unspecified (principal); R11.10 Vomiting, unspecified | CPT/HCPCS: A0425; A0429 ==

== ENCOUNTER 2022-06-25 19:28 | Emergency (ER) | payer MEDICARE ==
--- NOTE | 2022-06-25 22:22 | ED Physician Documentation ---
History of Present Illness - Chief complaint Chief Complaint: Abd Pain - Additonal information Additional information: BIBA. HPI from EMS report. Patient is unable to provide HPI/ROS due to severe dementia. Per EMS, patient's caregiver reports vomiting this evening, concern for bowel obstruction. 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 : None HEENT: None Psych: Anxiety Musculoskeletal: None Derm: None - Past Surgical History Past Surgical History: Yes /VIOLIN RESTORER: Hysterectomy - Present Medications Home Medications: Ambulatory Orders Medication Instructions Recorded Confirmed Galantamine [Razadyne] 4 mg PO DAILY 11/19/13 12/01/18 HYDROcod/ACETAM 5/325 [Vicodin 1 - 2 ea PO Q6H PRN #15 tablet 11/19/13 12/01/18 5/325] methocarbamoL [Robaxin-750] 750 mg PO Q6HR PRN #20 tablet 11/19/13 12/01/18 Famotidine [Pepcid] 20 mg PO BID #60 tablet 12/01/18 Cephalexin Suspension [Keflex] 750 mg PO BID #150 ml 04/07/19 Phenazopyridine HCl [Pyridium] 100 mg PO TID PRN #15 tablet 04/07/19 Cefpodoxime Proxetil [Vantin] 100 mg PO Q12H #14 tablet 10/25/20 Sertraline HCl [Zoloft] 20 mg PO DAILY 10/25/20 10/25/20 Cefpodoxime Proxetil [Vantin] 100 mg PO Q12H #20 tablet 12/30/20 - Allergies Allergies/Adverse Reactions: Allergies Allergy/AdvReac Type Severity Reaction Status Date / Time No Known Drug Allergies Allergy Verified 06/25/22 19:41 - Social History Does the pt smoke?: No Smoking Status: Never smoker Does the pt drink ETOH?: No Does the pt have substance abuse?: No - Immunizations Immunizations are current?: Yes - POLST Patient has POLST: No PD ED PE NORMAL - Vitals Vital signs reviewed: Yes - General General: No acute distress, Well developed/nourished, Other (awake, confused. does not follow commands and verbalizations are garbled and unintelligible gibberish) - HEENT HEENT: Atraumatic, PERRL - Cardiac Cardiac: RRR, No murmur - Respiratory Respiratory: No respiratory distress, Clear bilaterally - Abdomen Abdomen: Normal bowel sounds, Soft, Non tender, Non distended Results - Vitals Vitals: Vital Signs - 24 hr 06/26/22 06/26/22 06/26/22 00:00 02:00 03:46 Heart Rate 58 L 63 64 Respiratory 10 L 17 Rate Blood Pressure 108/79 134/11 H 137/69 H O2 Saturation 100 100 100 Oxygen O2 Source Room air - Rads (name of study) abdominal xrays Relevant Findings:: Prelim report reviewed, See rad report PD Medical Decision Making - ED course Complexity details: reviewed results, re-evaluated patient, considered differential ED course: BIBA for vomiting and concern for bowel obstruction. Patient reportedly had large BM shortly prior to arrival. She is in NAD during ED observation, xrays do not suggest bowel obstruction although possible fecal impaction, but patient had large BM shortly before d/c. Departure - Departure Disposition: 01 Home, Self Care Clinical Impression: Constipation Qualifiers: Constipation type: unspecified constipation type Qualified Code(s): K59.00 - Constipation, unspecified Condition: Good Instructions: ED Constipation Comments: X-rays of the abdomen were performed tonight and there is no evidence of a bowel obstruction. There is still a moderate amount of stool in the colon consistent with constipation, but there is also a lot of air/gas in most of the colon which is probably result of the large bowel movement prior to arrival to the emergency department. I would recommend giving a dose of milk of magnesia later this morning once she is home. The dose can be repeated as per the label instructions until she has a another large bowel movement. After that, consider using a stool softener on a daily basis to help prevent constipation from reoccurring. Discharge Date/Time: 06/26/22 03:48
--- NOTE | 2022-06-25 23:36 | XRAY Report ---
PROCEDURE: Abdomen Acute INDICATIONS: abdominal pain TECHNIQUE: One view chest and two views of the abdomen were acquired. COMPARISON: Chest x-ray 01/22/2022 FINDINGS: Surgical changes and devices: None. Chest: Lungs are clear. Heart size is normal. No pleural effusions. No pneumoperitoneum. Abdomen: Bowel gas pattern appears within normal limits without abnormal gaseous distention. There i s moderate stool distention within the rectosigmoid colon distally. No suspicious calcifications. Bones: No suspicious bony lesions. IMPRESSION: 1. No definite acute intra-abdominal abnormality. 2. Moderate stool distention in the rectosigmoid colon may reflect impaction. No definite bowel obstr uction. Reviewed by: Erick Dior MD on 06/25/2022 11:34 PM PDT Approved by: Erick Dior MD on 06/25/2022 11:34 PM PDT Station ID: [id number]
[2022-06-26 03:48] VITALS: BP 137/69
== END 2022-06-26 03:48 | disposition home or self-care (01) ==
LOC: EDUNIT# → EDBD → ED 19:28
DX: K59.00 Constipation, unspecified (principal); F03.C0 Unspecified dementia, severe, without behavioral disturbance, psychotic disturbance, mood disturbance, and anxiety; I48.91 Unspecified atrial fibrillation; Z79.899 Other long term (current) drug therapy
CPT/HCPCS: 99283

== ENCOUNTER 2022-06-26 03:26 | Outpatient (CLI) | payer MEDICARE | END 2022-06-26 23:59 | disposition home or self-care (01) | LOC: EMS 03:26 | PROVIDERS: ATTEND Emergency Medicine | DX: F03.90 Unspecified dementia, unspecified severity, without behavioral disturbance, psychotic disturbance, mood disturbance, and anxiety (principal); R41.0 Disorientation, unspecified | CPT/HCPCS: A0425; A0428 ==

== ENCOUNTER 2022-08-17 07:37 | Outpatient (CLI) | payer MEDICARE | END 2022-08-17 07:38 | disposition critical access hospital (66) | LOC: EMS 07:37 | DX: R56.9 Unspecified convulsions (principal) | CPT/HCPCS: A0425; A0429 ==

== ENCOUNTER 2022-08-17 07:48 | Emergency (ER) | payer MEDICARE ==
[2022-08-17] MEDS ORDERED: SODIUM CHLORIDE 0.9% 1,000 ML IV STA (07:55)
--- NOTE | 2022-08-17 07:56 | ED Physician Documentation ---
PD HPI SEIZURE - Stated complaint Stated Complaint: Seizure - History obtained from History obtained from: Family, EMS (EMS reports from the and he noted the patient to have seizure-like activity. This lasted a minute or 2 and then stopped. Breathing seemed irregular so dispatch on the phone had him commence CPR. No apparent period of pulselessness per se. business sales consultant arrived noting pulse/resps.) - History of Present Illness Timing - onset: Today Witnessed: Witnessed (by ) Number of seizures: Single, Lasted minutes Description of seizure activity: Generalized Injury during seizure: None Associated symptoms: Unknown (severe dementia and nonverbal) History of seizures: First seizure. No: Known seizure disorder Contributing factors: No: Changed meds, Fever Similar symptoms before: Has not had sx before Review of Systems Unable to obtain: Dementia, Other (info from spouse) Constitutional: denies: Fever Neurologic: denies: Head injury PD PAST MEDICAL HISTORY - Past Medical History Cardiovascular: Atrial fibrillation Respiratory: Shortness of breath Neuro: Dementia, Seizure disorder (spouse says she has had 3 piror seizures over 2 years. Infrequent enough no prior Rx for seizure meds. Has history of episodes atrial fib as well, not on beta lisa nor ASA. 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 GATHERER: Hysterectomy - Present Medications Home Medications: Ambulatory Orders Medication Instructions Recorded Confirmed Galantamine [Razadyne] 4 mg PO DAILY 11/19/13 12/01/18 HYDROcod/ACETAM 5/325 [Vicodin 1 - 2 ea PO Q6H PRN #15 tablet 11/19/13 12/01/18 5/325] methocarbamoL [Robaxin-750] 750 mg PO Q6HR PRN #20 tablet 11/19/13 12/01/18 Famotidine [Pepcid] 20 mg PO BID #60 tablet 12/01/18 Cephalexin Suspension [Keflex] 750 mg PO BID #150 ml 04/07/19 Phenazopyridine HCl [Pyridium] 100 mg PO TID PRN #15 tablet 04/07/19 Cefpodoxime Proxetil [Vantin] 100 mg PO Q12H #14 tablet 10/25/20 Sertraline HCl [Zoloft] 20 mg PO DAILY 10/25/20 10/25/20 Cefpodoxime Proxetil [Vantin] 100 mg PO Q12H #20 tablet 12/30/20 - Allergies Allergies/Adverse Reactions: Allergies Allergy/AdvReac Type Severity Reaction Status Date / Time No Known Drug Allergies Allergy Verified 08/17/22 08:06 - Social History Does the pt smoke?: No Smoking Status: Never smoker Does the pt drink ETOH?: No Does the pt have substance abuse?: No - Immunizations Immunizations are current?: Yes - POLST Patient has POLST: No PD ED PE NORMAL - Vitals Vital signs reviewed: Yes - General General: Other (dementia nonverbal. pulls away from touch. Mild general shakiness. ) - HEENT HEENT: Atraumatic - Neck Neck: Supple, no meningeal sign, No adenopathy - Cardiac Cardiac: No: RRR (irregular and initially fast but rate improves with metoprolol IV. BP improves as well. ) - Respiratory Respiratory: Clear bilaterally - Abdomen Abdomen: Soft, Non tender, Non distended - Derm Derm: Normal color - Extremities Extremities: No edema - Neuro Neuro: No sensory deficit (withdraws, pulls away from tactile sensations. Rather stiff extremity tone. ) Results - Vitals Vitals: Vital Signs - 24 hr 08/17/22 08/17/22 08/17/22 07:55 08:23 09:04 Temperature 36.9 C Heart Rate 110 H 97 125 H Respiratory 17 Rate Blood Pressure 200/177 H 197/116 H 188/90 H O2 Saturation 98 98 08/17/22 08/17/22 08/17/22 09:11 09:14 10:08 Temperature Heart Rate 103 H 87 105 H Respiratory 18 Rate Blood Pressure 177/89 H 169/89 H O2 Saturation 97 97 Oxygen O2 Source Room air - Labs Labs: Laboratory Tests 08/17/22 08/17/22 08/17/22 08:00 08:00 08:00 WBC 6.8 RBC 4.70 Hgb 13.8 Hct 41.6 MCV 88.5 MCH 29.4 MCHC 33.2 RDW 12.9 Plt Count 288 MPV 10.6 Neut # (Auto) 4.0 Lymph # (Auto) 1.9 [place] # (Auto) 0.6 Eos # (Auto) 0.2 Baso # (Auto) 0.1 Absolute Nucleated RBC 0.00 Nucleated RBC % 0.0 Sodium 141 Potassium 4.0 Chloride 105 Carbon Dioxide 24 Anion Gap 12.0 BUN 12 Creatinine 0.5 Estimated GFR (MDRD) 119 Glucose 95 Calcium 9.2 Magnesium 2.2 Total Bilirubin 0.7 AST 18 ALT 19 Alkaline Phosphatase 73 Total Creatine Kinase 44 Total Protein 6.5 L Albumin 3.7 Globulin 2.8 Albumin/Globulin Ratio 1.3 Lipase 37 PD Medical Decision Making - ED course Complexity details: considered differential, d/w family (talked with spouse by phone. He is okay with her returning home when we can arrange transport. She has not been able to ride in car for over 3 years. He states history of prior seizures x 3 over 2 years. No AED has been recommended in the past. History of atrial fib epiosdes. No meds. ) ED course: Recurrent seizure, infrequent. Has atrial fib which has occurred in episodes in the past. No current appearance of illness nor electrolyte problems. will talk with PMD about whether to start AED meds, given infrequency, and any ASA/betablocker for the atrial fib. He states has not been on med previously. Departure - Departure Disposition: 01 Home, Self Care Clinical Impression: Recurrent seizures, Paroxysmal atrial fibrillation Dementia Qualifiers: Dementia type: unspecified type Dementia severity: severe Dementia behavioral or psychological symptom: unspecified whether behavioral, psychotic, or mood disturbance or anxiety Qualified Code(s): F03.C0 - Unspecified dementia, severe, without behavioral disturbance, psychotic disturbance, mood disturbance, and anxiety Condition: Stable Follow-Up: TERESA LEVIN MD [Physician No Access] - Comments: Follow-up with a phone conversation with your primary care later today. Discussion would be whether to start a antiseizure medicine given a recurrent seizure. However the long interval between them would make it reasonable to not be on seizure medicines given side effects etc. Other discussion would be that [place] is in atrial fibrillation and likely is in and out of it at times. Discussed with your primary care whether to be on any rate limiting heart medicine such as a beta-lisa or calcium lisa. It would also be suggested usually to be on it at least a baby aspirin daily if not a blood thinner. I would let you and your primary care to discuss those options and they do not need to be decided immediately. Continue your usual medicines otherwise. The basic CT scan of the head did not show any acute abnormalities. The chest x-ray was clear. Basic blood tests were normal here as well. Discharge Date/Time: 08/17/22 10:08
[2022-08-17 08:10] LABS: BASOPHILS # (AUTO) 0.1 10^3/uL (0.0-0.1); BASOPHILS % (AUTO) 0.7 %; EOSINOPHILS # (AUTO) 0.2 10^3/uL (0.0-0.7); EOSINOPHILS % (AUTO) 3.1 %; HCT - HEMATOCRIT 41.6 % (37.0-47.0); HGB - HEMOGLOBIN 13.8 g/dL (12.0-16.0); LYMPHOCYTES # (AUTO) 1.9 10^3/uL (1.5-3.5); MEAN CORPUSCULAR HEMOGLOBIN 29.4 pg (27.0-31.0); MEAN CORPUSCULAR HGB CONC 33.2 g/dL (32.0-36.0); MEAN CORPUSCULAR VOLUME 88.5 fL (81.0-99.0); MEAN PLATELET VOLUME 10.6 fL (7.9-10.8); MONOCYTES # (AUTO) 0.6 10^3/uL (0.0-1.0); MONOCYTES % (AUTO) 8.7 %; NEUTROPHILS % (AUTO) 58.8 %; PLT - PLATELET COUNT 288 10^3/uL (130-450); RED CELL DISTRIBUTION WIDTH 12.9 % (12.0-15.0); WHITE BLOOD COUNT 6.8 x10^3/uL (4.8-10.8)
--- NOTE | 2022-08-17 08:24 | XRAY Report ---
PROCEDURE: Chest 1 View X-Ray INDICATIONS: chest pain TECHNIQUE: One view of the chest was acquired. COMPARISON: 09/12/2020, 04/24/2021 FINDINGS: Surgical changes and devices: None. Lungs and pleura: No pleural effusions or pneumothorax. Lungs are clear. Somewhat asymmetric biap ical pleural-parenchymal scarring is stable, left greater than right. Mediastinum: Mediastinal contours appear normal. Heart size is normal. Bones and chest wall: No suspicious bony lesions. Overlying soft tissues appear unremarkable. IMPRESSION: No acute cardiopulmonary process. Reviewed by: Jamey Franks MD on 08/17/2022 8:23 AM PDT Approved by: Jamey Franks MD on 08/17/2022 8:23 AM PDT Station ID: [id number]
[2022-08-17 08:32] LABS: ALBUMIN 3.7 g/dL (3.2-5.5); ALBUMIN/GLOBULIN RATIO 1.3 (1.0-2.2); BILIRUBIN,TOTAL 0.7 mg/dL (0.2-1.0); CALCIUM 9.2 mg/dL (8.5-10.3); CREATININE 0.5 mg/dL (0.4-1.0); TOTAL PROTEIN 6.5 g/dL (6.7-8.2)
[2022-08-17] MEDS ORDERED: METOPROLOL 5 MG/5 ML VIAL IVP STA (08:37)
--- NOTE | 2022-08-17 08:38 | CT Report ---
PROCEDURE: HEAD WO INDICATIONS: seizure this morning TECHNIQUE: Noncontrast 4.5 mm thick angled axial sections acquired from the foramen magnum to the vertex. For r adiation dose reduction, the following was used: automated exposure control, adjustment of mA and/or kV according to patient size. COMPARISON: None. FINDINGS: Image quality: Excellent. CSF spaces: Basal cisterns are patent. No extra-axial fluid collections. Stable ventriculomegaly se condary to volume loss. Incidental note made of cavum septum callosum. Brain: No midline shift. No intracranial masses or hemorrhage. Trevizo-white matter interface is norm al. Prominent generalized volume loss. Small vessel ischemic change. Skull and face: Calvarium and visualized facial bones are intact, without suspicious lesions. Sinuses: Visualized sinuses and mastoids are clear. IMPRESSION: 1. Prominent generalized volume loss, stable. Small vessel ischemic change. 2. No evidence of acute intracranial abnormality. Reviewed by: Jamey Franks MD on 08/17/2022 8:37 AM PDT Approved by: Jamey Franks MD on 08/17/2022 8:37 AM PDT Station ID: [id number]
[2022-08-17 10:09] VITALS: BP 169/89
== END 2022-08-17 10:08 | disposition home or self-care (01) ==
LOC: EDUNIT# → ED 07:48
DX: G40.409 Other generalized epilepsy and epileptic syndromes, not intractable, without status epilepticus (principal); I48.0 Paroxysmal atrial fibrillation; F03.C0 Unspecified dementia, severe, without behavioral disturbance, psychotic disturbance, mood disturbance, and anxiety; Z79.899 Other long term (current) drug therapy
CPT/HCPCS: 36415; 80053; 82550; 83690; 83735; 85025; 93005; 96374; 99284

== ENCOUNTER 2022-08-17 10:10 | Outpatient (CLI) | payer MEDICARE | END 2022-08-17 10:11 | disposition home or self-care (01) | LOC: EMS 10:10 | PROVIDERS: ATTEND Emergency Medicine | DX: F03.90 Unspecified dementia, unspecified severity, without behavioral disturbance, psychotic disturbance, mood disturbance, and anxiety (principal); Z74.01 Bed confinement status | CPT/HCPCS: A0425; A0428 ==

== ENCOUNTER 2022-11-01 04:08 | Outpatient (CLI) | payer MEDICARE | END 2022-11-01 23:59 | disposition critical access hospital (66) | LOC: EMS 04:08 | DX: R41.82 Altered mental status, unspecified (principal); S00.83XA Contusion of other part of head, initial encounter; X58.XXXA Exposure to other specified factors, initial encounter | CPT/HCPCS: A0425; A0429 ==

== ENCOUNTER 2022-11-01 04:20 | Emergency (ER) | payer MEDICARE ==
--- NOTE | 2022-11-01 04:25 | ED Physician Documentation ---
History of Present Illness - Stated complaint Stated Complaint: FOUND DOWN - History obtained from History obtained from: EMS - Additonal information Additional information: 77yoF with PMH end stage dementia (nonverbal, does not walk) presents by EMS from home for possible unresponsive episode. History obtained by EMS and via phone. states that he heard the patient shriek and went to check on her. He states that he found the patient in bed with strange eye movements and called 911. He states that he started CPR on the patient. did not check for pulse. When EMS arrived they found the patient awake and moving. EMS also states that they have been to the same residence before for CPR in progress. Of note, no evidence of CPR on patient's body. Chest is atraumatic and no bruising noted. states that exact same thing happened several months previously, but does not know the diagnosis. Patient moving all extremities. Eyes closed. Nonverbal, however that is reported baseline. PD PAST MEDICAL HISTORY - Past Medical History Cardiovascular: Atrial fibrillation Respiratory: Shortness of breath Neuro: Dementia, Seizure disorder (spouse says she has had 3 piror seizures over 2 years. Infrequent enough no prior Rx for seizure meds. Has history of episodes atrial fib as well, not on beta lisa nor ASA. 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 TECHNICIAN: Hysterectomy - Present Medications Home Medications: Ambulatory Orders Medication Instructions Recorded Confirmed Sertraline HCl [Zoloft] 20 mg PO DAILY 10/25/20 11/01/22 - Allergies Allergies/Adverse Reactions: Allergies Allergy/AdvReac Type Severity Reaction Status Date / Time No Known Drug Allergies Allergy Verified 08/17/22 08:06 - Social History Does the pt smoke?: No Smoking Status: Never smoker Does the pt drink ETOH?: No Does the pt have substance abuse?: No - Immunizations Immunizations are current?: Yes - POLST Patient has POLST: No PD ED PE NORMAL - Vitals Vital signs reviewed: Yes - General General: No acute distress, Other (frail. AO x0) - HEENT HEENT: Other (golf-ball sized contusion L forehead) - Neck Neck: Supple, no meningeal sign - Cardiac Cardiac: RRR, Strong equal pulses - Abdomen Abdomen: Soft, Non tender, Non distended - Derm Derm: Normal color, Warm and dry, No rash - Extremities Extremities: No deformity, Normal ROM s pain, No edema - Neuro Neuro: Other (moves all extremities) - Psych Psych: Other (unable to assess) Results - Vitals Vitals: Vital Signs - 24 hr 11/01/22 11/01/22 04:17 05:28 Temperature 36.5 C Heart Rate 91 74 Respiratory 20 14 Rate Blood Pressure 143/111 H 109/81 H O2 Saturation 98 98 Oxygen O2 Source Room air - Labs Labs: Laboratory Tests 11/01/22 11/01/22 04:48 04:48 WBC 8.7 RBC 4.63 Hgb 13.4 Hct 40.7 MCV 87.9 MCH 28.9 MCHC 32.9 RDW 12.8 Plt Count 271 MPV 10.3 Neut # (Auto) 6.0 Lymph # (Auto) 1.9 [place] # (Auto) 0.6 Eos # (Auto) 0.2 Baso # (Auto) 0.0 Absolute Nucleated RBC 0.00 Nucleated RBC % 0.0 Sodium 137 Potassium 3.6 Chloride 108 Carbon Dioxide 23 Anion Gap 6.0 BUN 14 Creatinine 0.6 Estimated GFR (MDRD) 97 Glucose 100 Calcium 9.2 Total Bilirubin 0.4 AST 15 ALT 20 Alkaline Phosphatase 84 Total Protein 6.2 L Albumin 3.8 Globulin 2.4 Albumin/Globulin Ratio 1.6 PD Medical Decision Making - ED course Complexity details: reviewed old records, reviewed results, re-evaluated patient, considered differential, d/w family ED course: Possible unresponsive episode. reportedly performed CPR however there is no sign of CPR on patient's body. There is a forehead contusion noted. Records show last time patient was here there was possible seizure activity noted, however this speculation based on 's recounting of the matter. Departure - Departure Disposition: 01 Home, Self Care Clinical Impression: Scalp hematoma, Dementia Condition: Stable Instructions: ED Hematoma Comments: Apply ice as needed to forehead for swelling. Follow-up with primary care physician. I do not know the cause of the episode that happened today, however labs and imaging are normal here in the emergency department.
[2022-11-01 04:53] LABS: BASOPHILS % (AUTO) 0.5 %; EOSINOPHILS # (AUTO) 0.2 10^3/uL (0.0-0.7); EOSINOPHILS % (AUTO) 2.1 %; HCT - HEMATOCRIT 40.7 % (37.0-47.0); HGB - HEMOGLOBIN 13.4 g/dL (12.0-16.0); LYMPHOCYTES # (AUTO) 1.9 10^3/uL (1.5-3.5); MEAN CORPUSCULAR HEMOGLOBIN 28.9 pg (27.0-31.0); MEAN CORPUSCULAR HGB CONC 32.9 g/dL (32.0-36.0); MEAN CORPUSCULAR VOLUME 87.9 fL (81.0-99.0); MEAN PLATELET VOLUME 10.3 fL (7.9-10.8); MONOCYTES # (AUTO) 0.6 10^3/uL (0.0-1.0); MONOCYTES % (AUTO) 6.4 %; NEUTROPHILS % (AUTO) 68.7 %; PLT - PLATELET COUNT 271 10^3/uL (130-450); RED BLOOD COUNT 4.63 10^6/uL (4.20-5.40); RED CELL DISTRIBUTION WIDTH 12.8 % (12.0-15.0); WHITE BLOOD COUNT 8.7 x10^3/uL (4.8-10.8)
[2022-11-01 05:10] LABS: ALBUMIN 3.8 g/dL (3.2-5.5); ALBUMIN/GLOBULIN RATIO 1.6 (1.0-2.2); BILIRUBIN,TOTAL 0.4 mg/dL (0.2-1.0); CALCIUM 9.2 mg/dL (8.5-10.3); CREATININE 0.6 mg/dL (0.6-1.3); POTASSIUM 3.6 mmol/L (3.5-4.5); TOTAL PROTEIN 6.2 g/dL (6.4-8.9)
[2022-11-01 06:16] VITALS: BP 107/65
--- NOTE | 2022-11-01 08:07 | CT Report ---
PROCEDURE: HEAD WO INDICATIONS: GLF/FOREHEAD CONTUSION TECHNIQUE: Noncontrast 4.5 mm thick angled axial sections acquired from the foramen magnum to the vertex. For r adiation dose reduction, the following was used: automated exposure control, adjustment of mA and/or kV according to patient size. COMPARISON: CT head 08/17/2022 FINDINGS: Image quality: Excellent. CSF spaces: Basal cisterns are patent. No extra-axial fluid collections. Ventricles are symmetric in size and shape. A persistent cavum septum pellucidum et vergae. Brain: No midline shift. No acute intracranial hemorrhage or mass effect. There is severe generalize d cerebral and cerebellar parenchymal volume loss with resultant ventricular and sulcal prominence. H ypodensities in the subcortical and periventricular white matter most commonly seen in setting of chr onic microvascular ischemic changes. Skull and face: Small left frontal/supraorbital scalp hematoma. Calvarium and visualized facial bone s are intact, without suspicious lesions. Sinuses: Visualized sinuses and mastoids are clear. IMPRESSION: Small left frontal scalp hematoma. No skull fracture. No acute intracranial hemorrhage. Reviewed by: Krish Bob MD on 11/01/2022 8:05 AM PDT Approved by: Krish Bob MD on 11/01/2022 8:05 AM PDT Station ID: [id number]
== END 2022-11-01 06:36 | disposition home or self-care (01) ==
LOC: EDUNIT# → ED 04:20
DX: S00.83XA Contusion of other part of head, initial encounter (principal); X58.XXXA Exposure to other specified factors, initial encounter; Y92.009 Unspecified place in unspecified non-institutional (private) residence as the place of occurrence of the external cause
CPT/HCPCS: 36415; 80053; 85025; 93005; 99283; 99284

== ENCOUNTER 2022-11-01 06:39 | Outpatient (CLI) | payer MEDICARE | END 2022-11-01 23:59 | disposition home or self-care (01) | LOC: EMS 06:39 | PROVIDERS: ATTEND Emergency Medicine | DX: R41.0 Disorientation, unspecified (principal); Z74.01 Bed confinement status | CPT/HCPCS: A0425; A0428 ==

== ENCOUNTER 2023-01-05 09:31 | Outpatient (CLI) | payer MEDICARE | END 2023-01-05 09:32 | disposition EMS.NT | LOC: EMS 09:31 | DX: T17.828A Food in other parts of respiratory tract causing other injury, initial encounter (principal); W44.F3XA Food entering into or through a natural orifice, initial encounter; Y93.89 Activity, other specified; Y92.009 Unspecified place in unspecified non-institutional (private) residence as the place of occurrence of the external cause ==

== ENCOUNTER 2023-02-13 08:36 | Outpatient (CLI) | payer MEDICARE | END 2023-02-13 08:37 | disposition critical access hospital (66) | LOC: EMS 08:36 | DX: Z04.89 Encounter for examination and observation for other specified reasons (principal) | CPT/HCPCS: A0425; A0429 ==

== ENCOUNTER 2023-02-13 08:45 | Emergency (ER) | payer MEDICARE ==
--- NOTE | 2023-02-13 08:59 | ED Physician Documentation ---
History of Present Illness - Stated complaint Stated Complaint: AMS - History obtained from History obtained from: EMS - Additonal information Additional information: The patient is brought to the emergency department by EMS for chief complaint of having a "spell" at home. The told medics that he was feeding the patient her breakfast and that she suddenly seemed to be unresponsive for a few seconds. He could not tell if she stopped breathing and so he started doing CPR and called 911. When the medics got there, they found the patient to be at baseline per , and the stated the spell had resolved after just a few seconds. He had ceased CPR by that point in time. The patient is severely demented and nonverbal and unable to offer any information. Medics state the did not report any other symptoms of illness to them. The is not here for the initial history taking. PD PAST MEDICAL HISTORY - Past Medical History Cardiovascular: Atrial fibrillation Respiratory: Shortness of breath Neuro: Dementia, Seizure disorder (spouse says she has had 3 piror seizures over 2 years. Infrequent enough no prior Rx for seizure meds. Has history of episodes atrial fib as well, not on beta lisa nor ASA. ) Endocrine/Autoimmune: None GI: None DIRECTOR EXPORT: None : None HEENT: None Psych: Anxiety Musculoskeletal: None Derm: None - Past Surgical History Past Surgical History: Yes /DIRECTOR EXPORT: Hysterectomy - Present Medications Home Medications: Ambulatory Orders Medication Instructions Recorded Confirmed Sertraline HCl [Zoloft] 20 mg PO DAILY 10/25/20 02/13/23 - Allergies Allergies/Adverse Reactions: Allergies Allergy/AdvReac Type Severity Reaction Status Date / Time No Known Drug Allergies Allergy Verified 02/13/23 13:55 - Social History Does the pt smoke?: No Smoking Status: Never smoker Does the pt drink ETOH?: No Does the pt have substance abuse?: No - Immunizations Immunizations are current?: Yes - POLST Patient has POLST: No PD ED PE NORMAL - Vitals Vital signs reviewed: Yes - General General: No acute distress, Well developed/nourished, Other (The patient is laying in bed with teeth clenched, grimacing.) - HEENT HEENT: Atraumatic, PERRL, EOMI, Moist mucous membranes - Neck Neck: Supple, no meningeal sign - Cardiac Cardiac: RRR, No murmur - Respiratory Respiratory: No respiratory distress, Clear bilaterally - Abdomen Abdomen: Soft, Non tender, Non distended - Derm Derm: Normal color, Warm and dry, No rash - Extremities Extremities: No deformity - Neuro Neuro: Other (Moving x4 extremities. No gross deficits otherwise.) Results - Vitals Vitals: Oxygen O2 Source Room air - Labs Labs: Laboratory Tests 02/13/23 02/13/23 09:12 09:12 WBC 7.2 RBC 4.72 Hgb 13.8 Hct 42.6 MCV 90.3 MCH 29.2 MCHC 32.4 RDW 12.8 Plt Count 284 MPV 10.2 Neut # (Auto) 4.3 Lymph # (Auto) 2.0 [place] # (Auto) 0.6 Eos # (Auto) 0.2 Baso # (Auto) 0.0 Absolute Nucleated RBC 0.00 Nucleated RBC % 0.0 Sodium 139 Potassium 3.9 Chloride 108 Carbon Dioxide 22 Anion Gap 9.0 BUN 15 Creatinine 0.6 Estimated GFR (MDRD) 96 Glucose 90 Calcium 9.2 Total Bilirubin 0.4 AST 12 ALT 14 Alkaline Phosphatase 93 Total Protein 5.9 L Albumin 3.9 Globulin 2.0 L Albumin/Globulin Ratio 2.0 Lipase 20 PD Medical Decision Making - ED course Complexity details: reviewed results, re-evaluated patient, considered differential ED course: The medics had reported that told them the patient was back at her usual baseline and at this point, it was not clear what caused her to seem to be unresponsive for few seconds. It did not sound as though the patient had actually stopped breathing or had a cardiac arrest, and it did not appear that she had any chest trauma from the CPR attempts. The patient was without any ability to articulate any complaints or any other concerns. Laboratory studies were ordered, but beyond this, I did not find any reason to subject her to extensive work-up as this seems to be a very brief episode which was book ended by patient being at her baseline. Labs were unremarkable. was informed that pt would be discharged, and was agreeable. Departure - Departure Disposition: 01 Home, Self Care Clinical Impression: Altered mental status Qualifiers: Altered mental status type: unspecified Qualified Code(s): R41.82 - Altered mental status, unspecified Condition: Stable Instructions: ED Dementia Caregiver Support Comments: Ms. Ryan had a brief episode of altered level of consciousness today which resolved. Her blood work looks good, as do her cardiac tracings and there is no evidence of an acute, serious condition causing her symptoms. If you have further concerns, please have her follow-up with her primary doctor. Forms: PCP List Discharge Date/Time: 02/13/23 11:04
[2023-02-13 09:00] VITALS: BP 112/82
[2023-02-13 09:16] LABS: BASOPHILS % (AUTO) 0.6 %; EOSINOPHILS # (AUTO) 0.2 10^3/uL (0.0-0.7); EOSINOPHILS % (AUTO) 3.4 %; HCT - HEMATOCRIT 42.6 % (37.0-47.0); HGB - HEMOGLOBIN 13.8 g/dL (12.0-16.0); LYMPHOCYTES % (AUTO) 27.8 %; MEAN CORPUSCULAR HEMOGLOBIN 29.2 pg (27.0-31.0); MEAN CORPUSCULAR HGB CONC 32.4 g/dL (32.0-36.0); MEAN CORPUSCULAR VOLUME 90.3 fL (81.0-99.0); MEAN PLATELET VOLUME 10.2 fL (7.9-10.8); MONOCYTES # (AUTO) 0.6 10^3/uL (0.0-1.0); MONOCYTES % (AUTO) 8.4 %; NEUTROPHILS # (AUTO) 4.3 10^3/uL (1.5-6.6); NEUTROPHILS % (AUTO) 59.4 %; PLT - PLATELET COUNT 284 10^3/uL (130-450); RED BLOOD COUNT 4.72 10^6/uL (4.20-5.40); RED CELL DISTRIBUTION WIDTH 12.8 % (12.0-15.0); WHITE BLOOD COUNT 7.2 x10^3/uL (4.8-10.8)
[2023-02-13 09:36] LABS: ALBUMIN 3.9 g/dL (3.2-5.5); BILIRUBIN,TOTAL 0.4 mg/dL (0.2-1.0); CALCIUM 9.2 mg/dL (8.5-10.3); CREATININE 0.6 mg/dL (0.6-1.3); POTASSIUM 3.9 mmol/L (3.5-4.5); TOTAL PROTEIN 5.9 g/dL (6.4-8.9)
[2023-02-13 10:17] VITALS: O2SAT 99
== END 2023-02-13 11:04 | disposition home or self-care (01) ==
LOC: EDUNIT# → ED 08:45
DX: R40.4 Transient alteration of awareness (principal); F03.C0 Unspecified dementia, severe, without behavioral disturbance, psychotic disturbance, mood disturbance, and anxiety; R41.0 Disorientation, unspecified
CPT/HCPCS: 36415; 80053; 83690; 85025; 99283

== ENCOUNTER 2023-02-13 10:58 | Outpatient (CLI) | payer MEDICARE | END 2023-02-13 10:59 | disposition home or self-care (01) | LOC: EMS 10:58 | PROVIDERS: ATTEND Emergency Medicine | DX: F03.C0 Unspecified dementia, severe, without behavioral disturbance, psychotic disturbance, mood disturbance, and anxiety (principal); R41.0 Disorientation, unspecified; R53.1 Weakness | CPT/HCPCS: A0425; A0428 ==

== ENCOUNTER 2023-02-13 13:30 | Outpatient (CLI) | payer MEDICARE | END 2023-02-13 13:31 | disposition critical access hospital (66) | LOC: EMS 13:30 | DX: R56.9 Unspecified convulsions (principal) | CPT/HCPCS: A0425; A0429 ==

== ENCOUNTER 2023-02-13 13:40 | Emergency (ER) | payer MEDICARE ==
--- NOTE | 2023-02-13 16:04 | ED Physician Documentation ---
History of Present Illness - Stated complaint Stated Complaint: SEIZURE - Chief complaint Chief Complaint: General - History obtained from History obtained from: Family, EMS - Additonal information Additional information: The patient was sent to the emergency department by EMS again after crying out and having a "shaking" type episode at home. The patient is severely demented and lives at home with her , and she cannot offer any information on her own. She is at baseline nonverbal and nonambulatory. The patient was just here earlier today after she had a "spell" for a few seconds at the table where she was unresponsive and her thought she would stop breathing and did CPR. Both the doing CPR and the persistent concern over possible seizure have been a recurrent theme, both with EMS and with patient being sent here. The patient has been seen multiple times for similar symptoms where she cries out and has a brief shaking episode on the order of a few seconds. She has also been seen multiple times by the medics without transport as well as multiple times with transport here to the emergency department where the has been has a fixed concern about the patient stopping breathing and performed CPR when it is not needed. Medics state that the patient seems to be at baseline currently for what she usually is when they see her. No unusual activity of any kind in route. Vital signs have been stable, they report. PD PAST MEDICAL HISTORY - Past Medical History Past Medical History: Yes Cardiovascular: Atrial fibrillation Respiratory: Shortness of breath Neuro: Dementia, Seizure disorder Endocrine/Autoimmune: None GI: None IT SPECIALIST: None : None HEENT: None Psych: Anxiety Musculoskeletal: None Derm: None - Past Surgical History Past Surgical History: Yes /IT SPECIALIST: Hysterectomy - Present Medications Home Medications: Ambulatory Orders Medication Instructions Recorded Confirmed Sertraline HCl [Zoloft] 20 mg PO DAILY 10/25/20 02/13/23 - Allergies Allergies/Adverse Reactions: Allergies Allergy/AdvReac Type Severity Reaction Status Date / Time No Known Drug Allergies Allergy Verified 02/13/23 13:55 - Social History Does the pt smoke?: No Smoking Status: Never smoker Does the pt drink ETOH?: No Does the pt have substance abuse?: No - Immunizations Immunizations are current?: Yes - POLST Patient has POLST: No PD ED PE NORMAL - Vitals Vital signs reviewed: Yes - General General: No acute distress, Well developed/nourished, Other (The patient is resting comfortably in bed with eyes closed.) - HEENT HEENT: Atraumatic, PERRL, Moist mucous membranes, Other (No bleeding of the tongue. No evidence of trauma to the tongue or cheek.) - Neck Neck: Supple, no meningeal sign - Cardiac Cardiac: RRR, No murmur - Respiratory Respiratory: No respiratory distress, Clear bilaterally - Abdomen Abdomen: Soft, Non tender, Non distended - Derm Derm: Normal color, Warm and dry, No rash - Extremities Extremities: No deformity - Neuro Neuro: Other (The patient responds to noxious stimuli but otherwise lays in bed with her eyes closed. She is moving all 4 extremities.) - Psych Psych: Normal mood, Normal affect Results - Vitals Vitals: Oxygen O2 Source Room air - EKG (time done) 1449 EKG releavant findings:: EKG personally interpreted by author of this note. Relevant findings are: Rate: Rate (enter#) (110) Rhythm: Other (Read as "atrial fibrillation" though significant artifact present from patient shaking and P waves seem to be visible in some leads. Rhythm is somewhat irregular, however.) [place]: Normal QRS: Normal Ischemia: Normal ST segments Other comments: Other comments (Unable to say whether computer interpretation appears correct, due to the significant artifact and the fact that P waves do appear to be present in some leads, but the patient also has an irregular rhythm.) Compare to prior EKG: Old EKG unavailable PD Medical Decision Making - ED course Complexity details: considered differential, d/w family ED course: The patient had just been seen in the emergency department a few hours before with negative work-up and I did not repeat the work-up at this time. An EKG done was done because the patient was mildly tachycardic and this showed possible atrial fibrillation, that is very difficult to tell because the patient is constantly tremulous and this caused quite a bit of artifact on the EKG. The patient's heart rate was in the low 100s in the ED, which I felt was reasonable enough. I discussed the case with social work as there is concerned that perhaps the could not handle taking care of the patient at home. Social work did speak with the , who stated that he and his children do have a care conference coming up in a few days to discuss the patient's care needs and start the process of getting her to an assisted living facility. For now, he would like to take her home. He is on board with no further testing being done on the patient. Departure - Departure Disposition: 01 Home, Self Care Clinical Impression: Altered mental status Qualifiers: Altered mental status type: unspecified Qualified Code(s): R41.82 - Altered mental status, unspecified Condition: Stable Instructions: ED Dementia Caregiver Support Forms: PCP List Discharge Date/Time: 02/13/23 16:52
[2023-02-13 16:54] VITALS: BP 105/72; O2SAT 98
== END 2023-02-13 16:52 | disposition home or self-care (01) ==
LOC: EDUNIT# → ED 13:40
DX: R40.4 Transient alteration of awareness (principal); R00.0 Tachycardia, unspecified; F03.C0 Unspecified dementia, severe, without behavioral disturbance, psychotic disturbance, mood disturbance, and anxiety; R41.0 Disorientation, unspecified; Z74.01 Bed confinement status
CPT/HCPCS: 36415; 80053; 83690; 85025; 93005; 99283

== ENCOUNTER 2023-02-13 16:48 | Outpatient (CLI) | payer MEDICARE | END 2023-02-13 16:49 | disposition home or self-care (01) | LOC: EMS 16:48 | PROVIDERS: ATTEND Emergency Medicine | DX: F03.C0 Unspecified dementia, severe, without behavioral disturbance, psychotic disturbance, mood disturbance, and anxiety (principal); R41.0 Disorientation, unspecified; R53.1 Weakness; Z74.01 Bed confinement status | CPT/HCPCS: A0425; A0428 ==

== ENCOUNTER 2023-04-13 07:38 | Outpatient (CLI) | payer MEDICARE | END 2023-04-13 07:39 | disposition critical access hospital (66) | LOC: EMS 07:38 | DX: R56.9 Unspecified convulsions (principal); F03.90 Unspecified dementia, unspecified severity, without behavioral disturbance, psychotic disturbance, mood disturbance, and anxiety | CPT/HCPCS: A0425; A0429 ==

== ENCOUNTER 2023-04-13 07:48 | Emergency (ER) | payer MEDICARE ==
--- NOTE | 2023-04-13 08:15 | ED Physician Documentation ---
History of Present Illness - Stated complaint Stated Complaint: SZ/DEMENTIA - Chief complaint Chief Complaint: Neuro - History obtained from History obtained from: EMS - Additonal information Additional information: 78-year-old female with history of profound dementia, paroxysmal atrial fibrillation, seizure disorder presents by EMS from home for unresponsive episode. Patient seen in our ER numerous times for identical presentation. called for an unresponsive episode and performs CPR on the patient, even though she is listed as DNR. EMS reports that when they arrived there is no CPR in progress. Patient has profound dementia and is nonverbal, she currently has her eyes closed, no distress, no sequela of CPR on patient's body Review of Systems Unable to obtain: Dementia PD PAST MEDICAL HISTORY - Past Medical History Cardiovascular: Atrial fibrillation Respiratory: Shortness of breath Neuro: Dementia, Seizure disorder Endocrine/Autoimmune: None GI: None HEEL BUILDER: None : None HEENT: None Psych: Anxiety Musculoskeletal: None Derm: None - Past Surgical History Past Surgical History: Yes /HEEL BUILDER: Hysterectomy - Present Medications Home Medications: Ambulatory Orders Medication Instructions Recorded Confirmed Sertraline HCl [Zoloft] 20 mg PO DAILY 10/25/20 02/13/23 - Allergies Allergies/Adverse Reactions: Allergies Allergy/AdvReac Type Severity Reaction Status Date / Time No Known Drug Allergies Allergy Verified 04/13/23 07:52 - Social History Does the pt smoke?: No Smoking Status: Never smoker Does the pt drink ETOH?: No Does the pt have substance abuse?: No - Immunizations Immunizations are current?: Yes - POLST Patient has POLST: No PD ED PE NORMAL - Vitals Vital signs reviewed: Yes - General General: No acute distress, Other (eyes closed, resting comfortably) - Cardiac Cardiac: RRR, Strong equal pulses - Respiratory Respiratory: No respiratory distress, Clear bilaterally - Abdomen Abdomen: Soft, Non tender, Non distended - Derm Derm: Normal color, Warm and dry, No rash - Extremities Extremities: No deformity, No tenderness to palpate, Normal ROM s pain, No edema - Neuro Neuro: Other (moves all extremities, responds to voice) Results - Vitals Vitals: Vital Signs - 24 hr 04/13/23 04/13/23 04/13/23 07:52 08:38 09:53 Temperature 35.8 C L 36.4 C L Heart Rate 83 68 86 Respiratory 18 16 18 Rate Blood Pressure 157/139 H 142/68 H 141/69 H O2 Saturation 99 98 99 Oxygen O2 Source Room air - EKG (time done) 0811 EKG releavant findings:: EKG personally interpreted by author of this note. Relevant findings are: Rate: Rate (enter#) (71) Rhythm: NSR [place]: Normal Intervals: Prolonged [place] QRS: Normal Ischemia: Normal ST segments - Labs Labs: Laboratory Tests 04/13/23 04/13/23 08:26 08:26 WBC 8.8 RBC 4.81 Hgb 14.1 Hct 42.6 MCV 88.6 MCH 29.3 MCHC 33.1 RDW 12.7 Plt Count 284 MPV 10.3 Neut # (Auto) 6.2 Lymph # (Auto) 1.7 [place] # (Auto) 0.6 Eos # (Auto) 0.3 Baso # (Auto) 0.1 Absolute Nucleated RBC 0.00 Nucleated RBC % 0.0 Sodium 139 Potassium 3.7 Chloride 105 Carbon Dioxide 26 Anion Gap 8.0 BUN 11 Creatinine 0.6 Estimated GFR (MDRD) 96 Glucose 88 Calcium 9.1 Total Bilirubin 0.4 AST 12 ALT 13 Alkaline Phosphatase 84 Total Protein 6.3 L Albumin 3.9 Globulin 2.4 Albumin/Globulin Ratio 1.6 PD Medical Decision Making - ED course Complexity details: reviewed old records, reviewed results, re-evaluated patient, considered differential, d/w family ED course: Possible seizure event at home. Back to baseline. Patient has been seen numerous times in this emergency department for identical presentation. Laboratory work is unremarkable, no events witnessed while patient was in the emergency department. Has been informed of normal workup, patient discharged back home in stable condition. Departure - Departure Disposition: 01 Home, Self Care Clinical Impression: Unresponsive episode, Dementia Condition: Stable Instructions: ED Dementia Caregiver Support Forms: PCP List Discharge Date/Time: 04/13/23 10:06
[2023-04-13 08:31] LABS: BASOPHILS # (AUTO) 0.1 10^3/uL (0.0-0.1); BASOPHILS % (AUTO) 0.9 %; EOSINOPHILS # (AUTO) 0.3 10^3/uL (0.0-0.7); EOSINOPHILS % (AUTO) 3.1 %; HCT - HEMATOCRIT 42.6 % (37.0-47.0); HGB - HEMOGLOBIN 14.1 g/dL (12.0-16.0); LYMPHOCYTES # (AUTO) 1.7 10^3/uL (1.5-3.5); MEAN CORPUSCULAR HEMOGLOBIN 29.3 pg (27.0-31.0); MEAN CORPUSCULAR HGB CONC 33.1 g/dL (32.0-36.0); MEAN CORPUSCULAR VOLUME 88.6 fL (81.0-99.0); MEAN PLATELET VOLUME 10.3 fL (7.9-10.8); MONOCYTES # (AUTO) 0.6 10^3/uL (0.0-1.0); MONOCYTES % (AUTO) 6.9 %; NEUTROPHILS # (AUTO) 6.2 10^3/uL (1.5-6.6); NEUTROPHILS % (AUTO) 69.9 %; PLT - PLATELET COUNT 284 10^3/uL (130-450); RED BLOOD COUNT 4.81 10^6/uL (4.20-5.40); RED CELL DISTRIBUTION WIDTH 12.7 % (12.0-15.0); WHITE BLOOD COUNT 8.8 x10^3/uL (4.8-10.8)
[2023-04-13 08:48] LABS: ALBUMIN 3.9 g/dL (3.2-5.5); ALBUMIN/GLOBULIN RATIO 1.6 (1.0-2.2); BILIRUBIN,TOTAL 0.4 mg/dL (0.2-1.0); CALCIUM 9.1 mg/dL (8.5-10.3); CREATININE 0.6 mg/dL (0.6-1.3); POTASSIUM 3.7 mmol/L (3.5-4.5); TOTAL PROTEIN 6.3 g/dL (6.4-8.9)
[2023-04-13 09:53] VITALS: BP 141/69; O2SAT 99
== END 2023-04-13 10:06 | disposition home or self-care (01) ==
LOC: EDUNIT# → ED 07:48
DX: R40.4 Transient alteration of awareness (principal); F03.90 Unspecified dementia, unspecified severity, without behavioral disturbance, psychotic disturbance, mood disturbance, and anxiety; Z66 Do not resuscitate
CPT/HCPCS: 36415; 80053; 85025; 93005; 99283

== ENCOUNTER 2023-04-13 09:57 | Outpatient (CLI) | payer MEDICARE | END 2023-04-13 09:58 | disposition home or self-care (01) | LOC: EMS 09:57 | PROVIDERS: ATTEND Emergency Medicine | DX: F03.C0 Unspecified dementia, severe, without behavioral disturbance, psychotic disturbance, mood disturbance, and anxiety (principal); Z74.01 Bed confinement status | CPT/HCPCS: A0425; A0428 ==